=== PATIENT | female | born 1945 | race Caucasian/White ===

== ENCOUNTER 2019-08-04 10:12 | Day surgery (SDC) | payer MEDICARE, OTHER, SELFPAY ==
[2019-08-03 17:44] VITALS: BMI 37.4
[2019-08-04] VITALS (12 sets, daily range): BP systolic 131–191; BP diastolic 75–119; PULSE 75–100; RESP 16–28; TEMP 36.1–36.6; O2SAT 92–98
--- NOTE | 2019-08-04 11:08 | ANES.PREANES ---
Pre-Anesthetic Assessment Pre-Anesthetic Assessment: Height/Weight: Height 1.65 m Weight 102.058 kg Proposed Procedure: Operation Date: 08/04/19 11:25 Proposed Procedures p EGD W/ Biopsy(Not Applicable) - Yovani Vicente M.D s Bronchoscopy w/ Lavage(Not Applicable) - Yovani Vicente M.D Last intake: Intake Last Liquid Date 08/04/19 Last Liquid Time 02:00 Last Solid Date 08/03/19 Last Solid Time 05:00 Social: Social History: Tobacco and No alcohol Exam: Pre-Anes Outpt Exam: alert, oriented x 3, clear to auscultation bilaterally and regular rate & rhythm Airway: Submandibular: WNL Cervical ROM: WNL MP: 2 Dentition: False History/ROS: No significant history except as noted CV/HEM: CV/HEM: HTN Metabolic: Metabolic: DM, Morbid obesity and Thyroid Musc/skel: Musc/skel: Lower Back Pain and OA/DJD Anesthetic Plan: ASA status: II Anesthesia: Anesthesia Evaluation and General Risk of > 500 ml blood loss (7ml/kg in children): No PFSH Anesthesia PFSH: Medical History (Updated 08/04/19 @ 11:08 by Ger Huerta MD) Arthritis (Acute) Breast nodule (Acute) Diabetes (Acute) Hypertension (Acute) Hypothyroid (Acute) Post-laminectomy syndrome (Acute) Shortness of breath on exertion (Acute) Urinary bladder incontinence (Acute) Varicose veins with pain (Acute) Surgical History (Updated 08/04/19 @ 11:08 by Ger Huerta MD) H/O eye surgery (Acute) History of back surgery (Acute) History of carpal tunnel surgery (Acute) History of total left knee replacement (Acute) Hx of tubal ligation (Acute) Family History (Updated 08/03/19 @ 17:28 by Mallory Heath) Other Brain tumor Diabetes Heart disease Leukemia Social History (Updated 08/03/19 @ 17:43 by Mallory Heath) Smoking and tobacco status: former smoker Data Anesthesia Cardiac Studies: No Data to Display
[2019-08-04 11:26] LABS: Glucose Point of Care 183 mg/dL (70-110)
[2019-08-04] MEDS: sodium chloride 0.9% 1,000 ML 30 ML IV (11:26)
--- NOTE | 2019-08-04 11:28 | PM.HPUD ---
H&P update H&P Update: DATE OF SURGERY/PROCEDURE: 08/04/19 DATE H&P PERFORMED: 07/08/19 H&P UPDATE INFORMATION: H&P completed within last 30 days and No changes to prior documentation PLANNED PROCEDURE: Operation Date: 08/04/19 11:25 Proposed Procedures p EGD W/ Biopsy(Not Applicable) - Yovani Vicente M.D s Bronchoscopy w/ Lavage(Not Applicable) - Yovani Vicente M.D Full H&P Perinent History: Medical/Surgical History: Medical History (Updated 08/04/19 @ 11:08 by Ger Huerta MD) Arthritis (Acute) Breast nodule (Acute) Diabetes (Acute) Hypertension (Acute) Hypothyroid (Acute) Post-laminectomy syndrome (Acute) Shortness of breath on exertion (Acute) Urinary bladder incontinence (Acute) Varicose veins with pain (Acute) Family History: Family History (Updated 08/03/19 @ 17:28 by Mallory Heath) Other Brain tumor Diabetes Heart disease Leukemia Social History: Social History Smoking and tobacco status: former smoker
--- NOTE | 2019-08-04 12:16 | P.OP_ITS ---
Operative Report Post-Operative Note: Date of procedure: 08/04/19 Preop Diagnosis: Dysphasia, aspiration Post-op diagnosis: same Post-op Findings: Normal esophageal exam, normal bronchial examination, diffuse gastritis Procedure Done: EGD with biopsy gastric mucosa, flexible fiberoptic bronchoscopy with bronchoalveolar lavage right lower lobe for lipid-laden macrophage Specimens removed/disposition: Navigus, bronchoalveolar lavage Surgeon: Yovani Vicente Anesthesia: general Complications: None Findings: Diffuse gastritis Condition: stable Disposition: PACU Operative Report: Brief History: Mrs Vazquez is a pleasant female who has a 40- year history of dysphasia. She has been on numerous medications over the past and has not seen improvement. I discussed the goals risks and alternatives of treatment and informed consent was obtained to proceed with further surgical evaluation. Procedure: The patient was taken to the operating room under satisfactory general endotracheal anesthesia the bronchoscope was introduced into the trachea right and left bronchopulmonary segments 1 through 10 were examined no endobronchial lesions were identified. Thick mucoid secretions were noted in a few bronchopulmonary segments. Bronchoalveolar lavage was performed from the right lower lobe for lipid-laden macrophage. The esophagus scope was introduced into the post cricoid area. The esophagus stomach and duodenum were examined. The exam was significant for diffuse gastritis. A biopsy was taken of the gastric mucosa. A biopsy was taken of the distal esophagus. The patient was taken to the recovery room where she was observed. During the observation time postop care instructions and counseling including detailed written and verbal instructions were given to the patient and her son. Once both parties verbalized understanding of all instructions and once the patient met discharge criteria she was discharged in satisfactory and stable condition. Coding Level of Care Code Acute Econometrics Professor for Susu Carranza
[2019-08-04] MEDS: labetalol 5 mg/mL SDV 20mL IVP ×2 (12:47→12:57)
[2019-08-04] MEDS: morphine 4 mg/mL SDV 1 mL 2 MG IVP (12:48)
--- NOTE | 2019-08-04 13:48 | ANE.PACU ---
 Inpatient post-anesthesia follow up: Airway intact: Yes Vital signs: Temperature 97.7 F Pulse Rate [Bilate ral Radial] 75 Respiratory Rate 20 Blood Pressure [Le ft Arm] 147/75 Blood Pressure [Ri ght Arm] 159/101 Pulse Oximetry 95 Oxygen Delivery Me thod Room Air Oxygen Flow Rate 10 Fraction of Inspir ed Oxygen Hydration adequate: Yes Nausea and vomiting: No Mental status: Baseline
--- NOTE | 2019-08-04 13:48 | SUR.PHASEI ---
1309- TRANSFERRED PATIENT FROM PACU TO OPS VIA [facility]. RESP ARE EVEN AND NONLABORED. SAT 94% WITH ROOM AIR. SHE IS AWAKE AND ALERT. PRODUCTIVE COUGH INTERMITTENT. SHE REPORTS I'M DOING MUCH BETTER NOW TRANSITION OF CARE TO NINI CASTLE
--- NOTE | 2019-08-04 13:52 | SUR.PHASEI ---
1223- RECEIVED PATIENT IN PACU FROM OR VIA [facility]. RESP ARE LABORED WITH ACCESSORY USE, PERSISTENT COUGH WITH CLEAR PRODUCTIVE SPUTUM. PT IS AWAKE AND ALERT. NO S/S PAIN OR NAUSEA. SIMPLE MASK APPLIED AT 10LPM, SAT 97%. SUCTION YAUNKER PROVIDED
== END 2019-08-04 14:05 | disposition home or self-care (01) ==
PROVIDERS: Family Provider Internal Medicine; PCP Internal Medicine; Visit Provider Otolaryngology
PROC: 0DJ08ZZ Inspection of Upper Intestinal Tract, Via Natural or Artificial Opening Endoscopic (ICD-10-PCS; CPT 43235; principal; 2019-08-04 11:15)
PROC: 0BJ08ZZ Inspection of Tracheobronchial Tree, Via Natural or Artificial Opening Endoscopic (ICD-10-PCS; CPT 31622; 2019-08-04 11:15)
DX: R47.02 Dysphasia (principal); R09.89 Other specified symptoms and signs involving the circulatory and respiratory systems; R22.1 Localized swelling, mass and lump, neck; E11.9 Type 2 diabetes mellitus without complications; M19.90 Unspecified osteoarthritis, unspecified site; E03.9 Hypothyroidism, unspecified; M17.12 Unilateral primary osteoarthritis, left knee; I10 Essential (primary) hypertension; Z82.49 Family history of ischemic heart disease and other diseases of the circulatory system; Z83.3 Family history of diabetes mellitus; Z87.891 Personal history of nicotine dependence; Z79.84 Long term (current) use of oral hypoglycemic drugs; E66.01 Morbid (severe) obesity due to excess calories; Z68.37 Body mass index [BMI] 37.0-37.9, adult
CPT/HCPCS: 31624; 43239; 36416; 80500; 82962; 88305; J0330; J2001; J2270; J2405; J2704; J3010; J3490; J7030

== ENCOUNTER → 2019-08-25 10:18 | Outpatient (BNVA) | payer MEDICARE, OTHER, SELFPAY | PROVIDERS: Family Provider Internal Medicine; Visit Provider Otolaryngology | DX: R13.10 Dysphagia, unspecified (principal); R05 Cough; J34.2 Deviated nasal septum | CPT/HCPCS: 99213; 99214 ==

== ENCOUNTER → 2019-10-06 12:38 | Outpatient (BNVA) | payer MEDICARE, OTHER, SELFPAY | PROVIDERS: Family Provider Internal Medicine; Visit Provider Otolaryngology | DX: R13.10 Dysphagia, unspecified (principal); R05 Cough; J34.2 Deviated nasal septum | CPT/HCPCS: 99213; 99214 ==

== ENCOUNTER 2020-02-08 11:09 | Outpatient (CLI) | payer MEDICARE, OTHER, SELFPAY ==
[2020-02-09 17:25] LABS: Cat Dander (E1) Ige <0.10 kU/L; Cat Dander Class 0; Common Ragweed (Short) (W1) Ig <0.10 kU/L; Dog Dander (E5) Ige <0.10 kU/L; Dog Dander Class 0; Elm (T8) Ige <0.10 kU/L; Elm Class 0; English Plantain (W9) Ige <0.10 kU/L; English Plantain Class 0; Immunoglobulin E 40 kU/L (<OR=114); Immunoglobulin E 42 kU/L (<OR=114); Lamb'S Quarters (Goose Foot) <0.10 kU/L; Lamb'S Quarters Class 0; Maple (Box Elder) (T1) Ige <0.10 kU/L; Maple Class 0; Oak (T7) Ige <0.10 kU/L; Oak Class 0; Ragweeed Class 0; Rough Marsh Elder (W16) Ige <0.10 kU/L; Rough Marsh Elder Class 0
[2020-02-10 17:06] LABS: Alternaria Alternata (M6) Ige <0.10 kU/L; Alternaria Class 0; Bermuda Class 0; Bermuda Grass (G2) Ige <0.10 kU/L; D. Farinae Class 0; Dermatophagoides Class 0; Dermatophagoides Farinae (D2) <0.10 kU/L; Dermatophagoides Pteronyssinus <0.10 kU/L; House Dust (Greer) (H1) Ige <0.10 kU/L; House Dust (Hollister- Stier) <0.10 kU/L; House Dust Class 0; Johnson Grass (G10) Ige <0.10 kU/L; Johnson Grass Cl 0; June Grass Class 0; June Grass(Kentucky Blue) (G8) <0.10 kU/L; Meadow Fescue (G4) Ige <0.10 kU/L; Meadow Fescue Class 0; Mucor Racemosus Class 0; Orchard Grass (Cocksfoot) (G3) <0.10 kU/L; Penicillium Class 0; Penicillium Notatum (M1) Ige <0.10 kU/L; Perennial Rye Grass (G5) Ige <0.10 kU/L; Perennial Rye Grass Class 0; Sweet Vernal Class 0; Sweet Vernal Grass (G1) Ige <0.10 kU/L; Timothy Grass (G6) Ige <0.10 kU/L; Timothy Grass Class 0
[2020-02-11 18:41] LABS: Aspergillus Fumigatus, Igg Ab, 16.9 mg/L (<=102)
== END 2020-02-08 11:10 | disposition home or self-care (01) ==
LOC: LAB 11:16
PROVIDERS: PCP Internal Medicine; Visit Provider Internal Medicine Critical Care Medicine
DX: J45.909 Unspecified asthma, uncomplicated (principal); R06.02 Shortness of breath
CPT/HCPCS: 36415; 82785; 86003

== ENCOUNTER 2020-02-16 06:21 | Outpatient (CLI) | payer MEDICARE, OTHER, SELFPAY ==
--- NOTE | 2020-02-16 14:18 | PFTS_ITS ---
Date of Study:02/16/20 Date of Dictation: MECHANICS: Forced vital capacity (FVC) is normal. Forced expiratory volume in one second (FEV1) is normal. FEV1/FVC is normal. FLOW VOLUME LOOP: Normal. LUNG VOLUMES: Not measured DIFFUSING CAPACITY FOR CARBON MONOXIDE: Mildly reduced. INTERPRETATION: The pulmonary function tests are normal. Lung volumes are not measured due to claustrophobia. Gas exchange (DLCO) is mildly reduced. MTDD
== END 2020-02-16 06:22 | disposition home or self-care (01) ==
PROVIDERS: PCP Internal Medicine; Visit Provider Internal Medicine Critical Care Medicine
DX: J45.909 Unspecified asthma, uncomplicated (principal)
CPT/HCPCS: 94010; 94729

== ENCOUNTER → 2020-03-25 08:52 | Outpatient (BNVA) | payer MEDICARE, OTHER, SELFPAY | PROVIDERS: PCP Internal Medicine; Visit Provider Internal Medicine | DX: K52.9 Noninfective gastroenteritis and colitis, unspecified (principal) | CPT/HCPCS: 87635 ==

== ENCOUNTER 2020-03-29 08:00 | Day surgery (SDC) | payer MEDICARE, OTHER, SELFPAY ==
[2020-03-25 16:58] VITALS: BMI 36.6
[2020-03-29 08:34] VITALS: BP 116/70; PULSE 86; RESP 18; TEMP 36.5; O2SAT 96
[2020-03-29 08:51] LABS: Glucose Point of Care 184 mg/dL (70-110)
--- NOTE | 2020-03-29 08:51 | ECG_ITS ---
[facility] Test Date: 2020-03-29 Pat Name: Lilo Vazquez Department: Room: Gender: Female Manager Material: : 1945 Requested By: Alba Luna Order Number: [id number] Jeferson MD: Zenobia Peterson M.D. Measurements Intervals [place] Rate: 66 P: 35 NM: 163 QRS: 13 QRSD: 90 T: 50 QT: 409 QTc: 429 Interpretive Statements SINUS RHYTHM No previous ECG available for comparison Electronically Signed On 03-29-2020 20:51:58 CDT by Zenobia Peterson M.D. [id number]
[2020-03-29] MEDS: sodium chloride 0.9% 1,000 ML 30 ML IV (08:52)
--- NOTE | 2020-03-29 09:02 | ANES.PREANE2 ---
Pre-Anesthetic Assessment Pre-Anesthetic Assessment: Height/Weight: Height 1.65 m Weight 99.79 kg Temp Pulse Resp BP Pulse Ox 97.7 F 86 18 116/70 96 03/29/20 08:34 03/29/20 08:34 03/29/20 08:34 03/29/20 08:34 03/29/20 08:34 Preop Diagnosis: chronic diarrhea Proposed Procedure: Operation Date: 03/29/20 09:45 Proposed Procedures p Colonoscopy 28162 Z12.11(Not Applicable) - Jb Ferguson MD Familial anesthetic complications: None Was Beta Jaron taken within 24 hours: N/A Last intake: Intake Last Liquid Date 03/28/20 Last Liquid Time 21:00 Last Solid Date 03/28/20 Last Solid Time 08:00 Social: Social History: No alcohol and No tobacco Comment: former smoker Exam: Pre-Anes Outpt Exam: alert, oriented x 3, clear to auscultation bilaterally and regular rate & rhythm Airway: Cervical ROM: WNL MP: 2 Dentition: False Pulmonary: Pulmonary: Sleep apnea Comments: ? asthma has had persistent cough - evaulated by clinical account manager, Dr Leonardo and thought to be due to persistent postnasal drip exacerbated by r sided nasal deviation CV/HEM: CV/HEM: HTN Comments: Seen as follow up by Jacob on 03/14 - had equivocal stress test, decreased perfusion thought to be arifact, no further complains of chest pain which was thought to be atypical. Echo is 2016 shoed normal EF, but mod pulm HTN Metabolic: Metabolic: DM and Thyroid Anesthetic Plan: ASA status: 3 Anesthesia: MAC Risk of > 500 ml blood loss (7ml/kg in children): No Meds/Allergies Current Medications: Current Medications Generic Name Dose Route Start Last Admin Trade Name Freq PRN Reason Stop Dose Admin Sodium Chloride 1,000 mls @ 30 ml s/hr 03/29/20 08:30 03/29/20 08:52 Sodium Chloride 0.9% IV 30 mls/hr .Q24H STEPHANIE Administration PFSH Anesthesia PFSH: Medical History (Updated 03/14/20 @ 18:05 by Osei James MD) Arthritis Diabetes Hypertension Hypothyroid Post-laminectomy syndrome Urinary bladder incontinence Varicose veins with pain Surgical History H/O eye surgery History of back surgery History of carpal tunnel surgery History of incision and drainage Left groin History of total left knee replacement Hx of tubal ligation Family History Other Brain tumor CAD (coronary artery disease) Cancer Diabetes Heart disease Leukemia Denies family history of Anesthesia complication Bleeding disorder Social History Smoking and tobacco status: former smoker Quit status (tobacco): has quit using tobacco Year quit tobacco: 1970 - 0.5 PPD x 1 Year Alcohol intake: former Year of sobriety/quit date alcohol: 1982 Lives independently: Yes Household members: family Marital status: Current occupational status: retired History of recent travel: No Current gender identity: Female Data Anesthesia Other Labs: Laboratory Results - last 48 hr 03/29/20 08:48 POC Glucose 184 Cardiac Studies: No Data to Display
--- NOTE | 2020-03-29 09:48 | W.PM.OPSUD ---
Surgery/Procedure H&P Update DATE OF PROCEDURE: March 29, 2020 DATE H&P PERFORMED: 03/10/20 H&P UPDATE INFORMATION: I have reviewed H&P completed within last 30 days, I have examined patient prior to procedure and No changes to prior documentation PREOP DIAGNOSIS: chronic diarrhea PLANNED PROCEDURE: Operation Date: 03/29/20 09:45 Proposed Procedures p Colonoscopy 32791 Z12.11(Not Applicable) - Jb Ferguson MD
[2020-03-29 10:20] VITALS: BP 134/63; PULSE 72; RESP 16; TEMP 36.4; O2SAT 94
--- NOTE | 2020-03-29 10:32 | ANE.PACU2 ---
Inpatient post-anesthesia follow up: Airway intact: Yes Vital signs: Temperature 97.6 F Pulse Rate 72 Respiratory Rate 16 Blood Pressure 134/63 Pulse Oximetry 94 Oxygen Delivery Me thod Nasal Cannula Oxygen Flow Rate Fraction of Inspir ed Oxygen Hydration adequate: Yes Nausea and vomiting: No Mental status: Baseline
[2020-03-29 10:39] VITALS: BP 142/66; PULSE 77; RESP 18; O2SAT 95
== END 2020-03-29 10:55 | disposition home or self-care (01) ==
PROVIDERS: PCP Internal Medicine; Visit Provider Surgery
PROC: 0DJD8ZZ Inspection of Lower Intestinal Tract, Via Natural or Artificial Opening Endoscopic (ICD-10-PCS; CPT 45378; principal; 2020-03-29 09:45)
DX: D12.3 Benign neoplasm of transverse colon (principal); D12.4 Benign neoplasm of descending colon; R19.7 Diarrhea, unspecified; G47.30 Sleep apnea, unspecified; I10 Essential (primary) hypertension; I27.20 Pulmonary hypertension, unspecified; E11.9 Type 2 diabetes mellitus without complications; M19.90 Unspecified osteoarthritis, unspecified site; E03.9 Hypothyroidism, unspecified; M96.1 Postlaminectomy syndrome, not elsewhere classified; Z87.891 Personal history of nicotine dependence
CPT/HCPCS: 45380; 12345; 36416; 45385; 82274; 82962; 83630; 87046; 87328; 87329; 87493; 88305; 93005; J2704; J3490; J7030

== ENCOUNTER 2020-07-05 12:48 | Outpatient (CLI) | payer MEDICARE, OTHER, MEDICAID, SELFPAY ==
--- NOTE | 2020-07-05 13:02 | CT_ITS ---
WS: [id number] CT ABDOMEN PELVIS TECHNIQUE: Noncontrast CT of the abdomen and pelvis with coronal and sagittal reformatted images. CLINICAL INFORMATION: ABDOMINAL PAIN RIGHT LOWER QUADRANT COMPARISON: CT 6 24,015 DLP: 844.[address] scans at [facility] use at least one of these dose optimization techniques: automat ed exposure control; mA and/or kV adjustment per patient size (includes targeted exams where dose is matched to clinical indication); or iterative reconstruction. FINDINGS: Hepatomegaly with diffuse fatty infiltration. Cirrhotic contour to the liver. Enlargement of the caud ate. Liver is similar in appearance to 2015. Recommend correlation with liver function tests. Cholecy stectomy. Prominent lymph nodes in the upper abdomen along the celiac axis unchanged since 2015 likel y reactive. Small esophageal hiatal hernia. Lung bases are well aerated. Adrenal glands are normal. N ormal caliber abdominal aorta. Aortic calcification. Normal sigmoid colon. No evidence of small or large bowel obstruction. Fat-containing umbilical herni a. No herniated bowel. Adrenal glands are normal. No hydronephrosis in either kidney. No obstructing renal or ureteral calculi. No free fluid in the pelvis. CT/CT abdomen pelvis wo con [id number] IMPRESSION: 1. Hepatomegaly with nodular cirrhotic configuration to the liver with diffuse fatty infiltration. This is similar to 2015. Recommend correlation with liver function tests. 2. Prior cholecystectomy. 3. Prominent lymph nodes in the upper abdomen unchanged from previous likely r eactive. 4. Small esophageal hiatal hernia. 5. Fat-containing umbilical hernia. No herniated bowel. 6. No other significant findings.
[2020-07-05] MEDS: iohexol 300 mg/mL 50 mL Btl PO (14:04)
== END 2020-07-05 12:49 | disposition home or self-care (01) ==
PROVIDERS: PCP Internal Medicine; Visit Provider Internal Medicine
DX: R10.31 Right lower quadrant pain (principal); R16.0 Hepatomegaly, not elsewhere classified; K76.89 Other specified diseases of liver; Z90.49 Acquired absence of other specified parts of digestive tract; K42.9 Umbilical hernia without obstruction or gangrene; K44.9 Diaphragmatic hernia without obstruction or gangrene
CPT/HCPCS: 74176; Q9967

== ENCOUNTER 2020-08-03 10:34 | Outpatient (CLI) | payer MEDICARE, OTHER, MEDICAID, SELFPAY ==
--- NOTE | 2020-08-03 10:42 | MR_ITS ---
WS: [id number] MRI LUMBAR SPINE NONCONTRAST HISTORY: DEGENERATIVE DISC DISEASE LUMBOSACRAL W/RADICULOPATHY COMPARISON: None available. TECHNIQUE: Sagittal and axial multisequence imaging is submitted. Moderate increase in the thoracic kyphosis. T8 and T12 vertebral body hemangiomas. Normal posterior lumbar alignment. Disc space narrowing and desiccation is most significant and moderate at L4-5. There are sclerotic en dplate changes at L4-5 but no marrow edema or fracture. Conus terminates normally at L1. L1-L2: Normal. L2-L3: Normal. L3-L4: Mild annular disc bulging and osteophytic ridging. Moderate asymmetric ligamentum flavum hyper trophy, greatest on the LEFT. Mild facet joint arthritis. There is mild encroachment into the LEFT la teral thecal sac by the facet joint arthritis. No significant stenosis. L4-L5: Moderate annular disc bulging and osteophytic ridging. No focal disc protrusion. Prior debride ment of the ligamentum flavum. Focal laminectomy defect on the LEFT. There is mild clumping of the ne rve roots in the thecal sac. Mild encroachment into the LEFT subarticular recess but no high-grade st enosis. L5-S1: Facet joint arthritis and mild ligamentum flavum hypertrophy. No high-grade stenosis. Paravertebral soft tissues are negative for acute process. MR/MR lumbar spine wo con* [id number] IMPRESSION: 1. No significant central or foraminal stenosis or disc protrusion. 2. 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 3. Prior LEFT hemilaminectomy defect at L4-5. 4. Mild encroachment into the LEFT subarticular recess at L4-5 without signifi cant stenosis. 5. Asymmetric ligamentum flavum hypertrophy and facet arthritis at L3-4 with m inimal encroachment upon the LEFT lateral thecal sac.
--- NOTE | 2020-08-03 10:42 | MR_ITS ---
WS: [id number] MRI BRAIN WITHOUT CONTRAST HISTORY: MEMORY LOSS COMPARISON: Head CT 01/29/2012. TECHNIQUE: Diffusion imaging, multiplanar T1, T2 and FLAIR imaging obtained. No evidence for acute infarct or hemorrhage. Kaye-white matter differentiation is normal. No remote or acute infarcts are volume loss. Minimal chronic microvascular ischemic changes. Ventricles and extra-axial spaces are normal. No inferior displacement of cerebellar tonsils. The sella turcica and pituitary gland are unremarkabl e. Posterior fossa is also unremarkable. Dural venous sinuses and [place] demonstrate no abnormality on this unenhanced studies. Paranasal sinuses: Clear. Mastoid air cells: Normal. Calvarium and scalp: Intact. MR/MR head wo con* [id number] IMPRESSION: 1. No acute infarct or intracranial hemorrhage. 2. Mild chronic microvascular ischemic disease.
== END 2020-08-03 10:35 | disposition home or self-care (01) ==
PROVIDERS: PCP Internal Medicine; Visit Provider Internal Medicine
DX: R41.3 Other amnesia (principal); M51.17 Intervertebral disc disorders with radiculopathy, lumbosacral region; M47.816 Spondylosis without myelopathy or radiculopathy, lumbar region; G03.9 Meningitis, unspecified
CPT/HCPCS: 70551; 72148

== ENCOUNTER → 2020-08-11 14:59 | Outpatient (BNVA) | payer MEDICARE, OTHER, MEDICAID, SELFPAY | PROVIDERS: PCP Internal Medicine; Referring Provider Internal Medicine; Visit Provider Orthopaedic Surgery | DX: M54.9 Dorsalgia, unspecified (principal) | CPT/HCPCS: 72114 ==

== ENCOUNTER → 2020-08-25 08:28 | Outpatient (BNVA) | payer MEDICARE, OTHER, MEDICAID, SELFPAY | PROVIDERS: PCP Internal Medicine; Referring Provider Orthopaedic Surgery; Visit Provider Anesthesiology Pain Medicine | DX: G89.29 Other chronic pain (principal); M54.9 Dorsalgia, unspecified; M51.36 Other intervertebral disc degeneration, lumbar region; M47.816 Spondylosis without myelopathy or radiculopathy, lumbar region | CPT/HCPCS: 99205 ==

== ENCOUNTER 2020-08-30 10:54 | Outpatient (CLI) | payer MEDICARE, OTHER, MEDICAID, SELFPAY ==
--- NOTE | 2020-08-30 11:06 | MM_ITS ---
WS: [id number] SCREENING DIGITAL MAMMOGRAM WITH CAD HISTORY: SCREENING COMPARISON: 07/16/2019, 04/18/2018 and 01/25/2016 Bilateral CC and MLO views submitted. Computer aided detection analyzed. Breast composition: There are scattered areas of fibroglandular density. Linear calcifications have i ncreased in size and number since the prior study in the central LEFT breast at 12:00. These calcific ations may be ductal or vascular. Hopefully additional imaging will determine this. Otherwise the par enchymal pattern and calcifications are stable. MM/[place] [id number] IMPRESSION: BI-RADS: 0-Incomplete: Need additional imaging evaluation FOLLOW UP: Need Additional Imaging RIGHT BREAST: Magnification views of suspicious calcification CC and MLO. True ML.
== END 2020-08-30 10:55 | disposition home or self-care (01) ==
LOC: RADSHAW 11:01
PROVIDERS: PCP Internal Medicine; Visit Provider Internal Medicine
DX: Z12.31 Encounter for screening mammogram for malignant neoplasm of breast (principal); R92.1 Mammographic calcification found on diagnostic imaging of breast
CPT/HCPCS: 77067

== ENCOUNTER 2020-09-16 13:18 | Outpatient (CLI) | payer MEDICARE, OTHER, MEDICAID, SELFPAY ==
--- NOTE | 2020-09-16 13:34 | MM_ITS ---
WS: [id number] ADDITIONAL VIEWS RIGHT BREAST HISTORY: ABNORMAL MAMMOGRAM COMPARISON: 08/30/2020, 04/18/2018 Magnification views right CC and MLO projection. True ML also submitted. Linear area of increasing pleomorphic calcifications in the RIGHT breast near 11-12 o'clock. Calcific ations are in a posterior depth. Due to the linear distribution and increasing number of for several years biopsy is recommended. MM/[place] [id number] IMPRESSION: BI-RADS: 4-Suspicious Finding-Biopsy Should Be Considered FOLLOW-UP: Biopsy Recommended Stereotactic biopsy recommended of RIGHT breast calcifications. Notified Bhakti Alvarez MD at 09/16/2020 2:41 PM.
== END 2020-09-16 13:19 | disposition home or self-care (01) ==
LOC: RADSHAW 13:24
PROVIDERS: PCP Internal Medicine; Visit Provider Internal Medicine
DX: R92.8 Other abnormal and inconclusive findings on diagnostic imaging of breast (principal); R92.1 Mammographic calcification found on diagnostic imaging of breast
CPT/HCPCS: 77065

== ENCOUNTER → 2020-09-26 08:03 | Outpatient (BNVA) | payer MEDICARE, OTHER, MEDICAID, SELFPAY | PROVIDERS: PCP Internal Medicine; Visit Provider Specialist | DX: M48.062 Spinal stenosis, lumbar region with neurogenic claudication (principal); M51.36 Other intervertebral disc degeneration, lumbar region; E11.40 Type 2 diabetes mellitus with diabetic neuropathy, unspecified; Z87.891 Personal history of nicotine dependence | CPT/HCPCS: 95886; 95909; 99202 ==

== ENCOUNTER 2020-09-30 11:43 | Outpatient (CLI) | payer MEDICARE, OTHER, MEDICAID, SELFPAY ==
--- NOTE | 2020-09-30 11:45 | MM_ITS ---
WS: [id number] STEREOTACTIC RIGHT BREAST BIOPSY WITH VACUUM ASSISTANCE HISTORY: RIGHT ABNORMAL MAMMOGRAM COMPARISON: 09/16/2020 and 08/30/2020 Procedure, risks and complications were explained to the patient. Medications and prior radiographs a re reviewed. RIGHT breast calcifications are located. Calcifications are targeted in the craniocaudal projection. The skin is cleansed with ChloraPrep and anesthetized with 1% buffered lidocaine. Deeper soft tissues anesthetized with a combination of lidocaine and epinephrine. Small dermatome is made. Needle advanc ed into the RIGHT breast. Stereotactic imaging reveals appropriate positioning adjacent calcification s. Multiple vacuum-assisted core biopsies are obtained. No complications were encountered. Post biopsy specimen radiograph reveals numerous calcifications. Biopsy clip is placed in the cavity. Post imaging reveals good placement of the clip. No migration. Pressures held for approximately 15 minutes. No bleeding. Dressing applied. Patient discharged with n o complications. There is no bleeding. With any questions or complications patient is to return. MM/[place] [id number] IMPRESSION: 1. Uncomplicated RIGHT breast stereotactic biopsy. 2. Specimen contains numerous calcifications. Pathology: Benign breast tissue with fibroadenomatoid change and microcalcifica tions. No malignancy. RECOMMENDATION: Diagnostic RIGHT mammogram in 6 months.
--- NOTE | 2020-09-30 11:45 | MM_ITS ---
WS: [id number] STEREOTACTIC RIGHT BREAST BIOPSY WITH VACUUM ASSISTANCE HISTORY: RIGHT ABNORMAL MAMMOGRAM COMPARISON: 09/16/2020 and 08/30/2020 Procedure, risks and complications were explained to the patient. Medications and prior radiographs a re reviewed. RIGHT breast calcifications are located. Calcifications are targeted in the craniocaudal projection. The skin is cleansed with ChloraPrep and anesthetized with 1% buffered lidocaine. Deeper soft tissues anesthetized with a combination of lidocaine and epinephrine. Small dermatome is made. Needle advanc ed into the RIGHT breast. Stereotactic imaging reveals appropriate positioning adjacent calcification s. Multiple vacuum-assisted core biopsies are obtained. No complications were encountered. Post biopsy specimen radiograph reveals numerous calcifications. Biopsy clip is placed in the cavity. Post imaging reveals good placement of the clip. No migration. Pressures held for approximately 15 minutes. No bleeding. Dressing applied. Patient discharged with n o complications. There is no bleeding. With any questions or complications patient is to return. MM/MM surgical specimen RT IMPRESSION: 1. Uncomplicated RIGHT breast stereotactic biopsy. 2. Specimen contains numerous calcifications. Pathology: Benign breast tissue with fibroadenomatoid change and microcalcifica tions. No malignancy. RECOMMENDATION: Diagnostic RIGHT mammogram in 6 months.
--- NOTE | 2020-09-30 11:45 | MM_ITS ---
WS: [id number] STEREOTACTIC RIGHT BREAST BIOPSY WITH VACUUM ASSISTANCE HISTORY: RIGHT ABNORMAL MAMMOGRAM COMPARISON: 09/16/2020 and 08/30/2020 Procedure, risks and complications were explained to the patient. Medications and prior radiographs a re reviewed. RIGHT breast calcifications are located. Calcifications are targeted in the craniocaudal projection. The skin is cleansed with ChloraPrep and anesthetized with 1% buffered lidocaine. Deeper soft tissues anesthetized with a combination of lidocaine and epinephrine. Small dermatome is made. Needle advanc ed into the RIGHT breast. Stereotactic imaging reveals appropriate positioning adjacent calcification s. Multiple vacuum-assisted core biopsies are obtained. No complications were encountered. Post biopsy specimen radiograph reveals numerous calcifications. Biopsy clip is placed in the cavity. Post imaging reveals good placement of the clip. No migration. Pressures held for approximately 15 minutes. No bleeding. Dressing applied. Patient discharged with n o complications. There is no bleeding. With any questions or complications patient is to return. MM/[place] vac assist [id number] IMPRESSION: 1. Uncomplicated RIGHT breast stereotactic biopsy. 2. Specimen contains numerous calcifications. Pathology: Benign breast tissue with fibroadenomatoid change and microcalcifica tions. No malignancy. RECOMMENDATION: Diagnostic RIGHT mammogram in 6 months.
[2020-09-30 12:12] LABS: INR 1.09 (0.8-1.2)
== END 2020-09-30 11:44 | disposition home or self-care (01) ==
LOC: RADSHAW 11:43
PROVIDERS: PCP Internal Medicine; Visit Provider Internal Medicine
DX: R92.8 Other abnormal and inconclusive findings on diagnostic imaging of breast (principal); R92.1 Mammographic calcification found on diagnostic imaging of breast
CPT/HCPCS: 19081; 36415; 77065; 85610; 88305

== ENCOUNTER 2020-10-24 16:44 | Outpatient (CLI) | payer MEDICARE, OTHER, MEDICAID, SELFPAY ==
--- NOTE | 2020-10-24 16:58 | XRR_ITS ---
PROCEDURE INFORMATION: Exam: XR Chest Exam date and time: 10/24/2020 5:02 PM Age: 75 years old Clinical indication: Cough TECHNIQUE: Imaging protocol: XR of the chest Views: 2 views. COMPARISON: CR Chest 2 views* [id number] 07/10/2018 11:17 AM FINDINGS: Lungs: Lungs are clear. Pleural spaces: Unremarkable. No pleural effusion. No pneumothorax. Heart/Mediastinum: Heart is within normal limits of size. Bones/joints: There is mild degenerative change in thoracic spine. XR/XR chest 2V* [id number] IMPRESSION: No acute infiltrate.
== END 2020-10-24 16:45 | disposition home or self-care (01) ==
LOC: RAD 16:48
PROVIDERS: PCP Internal Medicine; Visit Provider Nurse Practitioner Family
DX: R05 Cough (principal)
CPT/HCPCS: 71046

== ENCOUNTER 2021-01-09 09:25 | Outpatient (RCR) | payer MEDICARE, OTHER, MEDICAID, SELFPAY | END 2021-01-25 23:59 | disposition home or self-care (01) | LOC: SPT 09:25 | PROVIDERS: PCP Internal Medicine; Referring Provider Internal Medicine; Visit Provider Internal Medicine | DX: M54.9 Dorsalgia, unspecified (principal); M51.17 Intervertebral disc disorders with radiculopathy, lumbosacral region | CPT/HCPCS: 97161 ==

== ENCOUNTER 2021-01-18 10:06 | Outpatient (CLI) | payer MEDICARE, OTHER, MEDICAID, SELFPAY ==
--- NOTE | 2021-01-18 10:16 | XR_ITS ---
WS: [id number] Cervical spine, 3 views, 01/18/2021 Clinical Data: DEGENRATIVE DISC DZ W/RADICULOPATHY Comparison: None. Findings: No compression fractures are seen. There is degenerative disc narrowing at C5-C6. There is anterior osteophyte formation and calcification of the anterior longitudinal ligament at C4-C5 and C5 -C6.. There is no prevertebral soft tissue swelling. The odontoid is unremarkable. There is minimal c alcification in the soft tissue of the left neck which may represent calcification in the carotid bif urcation. XR/XR cervical spine 3V* [id number] Impression: 1. Degenerative disc narrowing at C5-C6. 2. Osteoarthritis at C4-C5-C6.
== END 2021-01-18 10:07 | disposition home or self-care (01) ==
PROVIDERS: PCP Internal Medicine; Visit Provider Internal Medicine
DX: M50.10 Cervical disc disorder with radiculopathy, unspecified cervical region (principal); M47.812 Spondylosis without myelopathy or radiculopathy, cervical region
CPT/HCPCS: 72040

== ENCOUNTER 2021-02-07 08:38 | Outpatient (CLI) | payer MEDICARE, OTHER, MEDICAID, SELFPAY ==
--- NOTE | 2021-02-07 08:57 | ECG_ITS ---
[facility] Test Date: 2021-02-07 Pat Name: Lilo Vazquez Department: Room: Gender: Female General Adjuster: : 1945 Requested By: Bhakti Carrero Order Number: [id number] Jeferson MD: Zenobia Peterson M.D. Interpretive Statements NAME OF STUDY: LEXISCAN SESTAMIBI STRESS TEST INDICATION: Chest Pain PROCEDURE: At the baseline, the blood pressure was 155/75 mmHg with a heart rate of 68 bpm. The electrocardiogram showed normal sinus rhythm, normal axis. Poor baseline. The Lexiscan was infused over a period of 20 seconds. A total of 0.4 milligrams of Lexiscan was infused. The stress phase was continued for a total of 5 minutes. Heart rate at the end of the stress phase was 75 bpm with a blood pressure of 141/74 mmHg. The EKG at the peak infusion revealed sinus rhythm with no significant ST-T wave changes. Sestamibi was injected 20 seconds after the Lexiscan infusion. Blood pressure at the end of the recovery phase was 141/77 mmHg with a heart rate of 84 beats per minute. CONCLUSION: 1. No significant EKG changes with the LexiScan infusion. 2. No LexiScan induced chest pain or cardiac arrhythmia. 3. Normal blood pressure and heart rate response. 4. Sestamibi/sestamibi perfusion scan pending; see separate report. Electronically Signed On 02-08-2021 18:14:55 CDT by Zenobia Peterson M.D. [email or web address].[id number]
--- NOTE | 2021-02-07 08:58 | NMCV_ITS ---
NM dirk perf SPECT r/s* [id number] Lilo Vazquez Age: 75 Gender: F : 1945 Exam Date: 02/07/2021 08:58 Ordering Phys: Bhakti Alvarez MD Technologist: CHANDAN Palomino Exam Location: [facility] Indications: CHEST PAIN STRESS TEST Please [facility] IMAGE PROTOCOL Rest/Stress 1 Lexiscan Day Radiopharmaceutical Dose (mCi) Administration Site Administered by Rest: Tc-99m 10.7 IV CHANDAN Palomino Sestamibi Stress:Tc-99m 32.7 IV CHANDAN Crowe Sestamibi Rest: 07-Feb-2021 60 Discovery 630 Stress: 07-Feb-2021 30 Discovery 630 0.4mg Lexiscan. Supine position only as patient was unable to lay prone. SPECT RESULTS Technical Quality: Excellent Raw Data Analysis: Normal Image Corrections: No attenuation or motion correction applied Summed Stress Score: 0 Summed Rest Score: 1 Summed Difference Score: 0 PERFUSION FINDINGS Small size perfusion abnormality of mild severity of mid inferior wall on rest images with improved tracer uptake on stress images. This is suggestive of attenuation artifact. FUNCTIONAL RESULTS (calculated via Gated SPECT) Stress Image LV EF (%): 77 Stress EDV (mL):79 TID: 1.13 Stress ESV (mL):18 FUNCTIONAL FINDINGS: The left ventricle is normal in size. Transient Ischemia Dilatation of 1.1. There is normal left ventricular systolic function. The left ventricular ejection fraction is normal with a value of 77%. There is normal left ventricular wall thickening with no regional wall motion abnormality. Normal end-diastolic end-systolic volumes. IMPRESSIONS 1. Myocardial perfusion imaging is normal. Attenuation artifact in mid inferior wall. 2. Overall left ventricular systolic function is normal without regional wall motion abnormalities. 3. The left ventricular ejection fraction is normal with a value of 77%. 4. No coronary ischemia based on the study. 5. EKG portion of the study will be reported separately. Zenobia Peterson MD (Electronically Signed) Final Date: 08 February 2021 18:18 S
[2021-02-07 08:59] VITALS: BMI 35.2
[2021-02-07] MEDS: regadenoson 0.4 Mg/5 ml Syringe IVP (10:27)
[2021-02-07 10:48] VITALS: BP 140/81; PULSE 76
== END 2021-02-07 08:39 | disposition home or self-care (01) ==
LOC: CDL 08:44
PROVIDERS: PCP Internal Medicine; Visit Provider Internal Medicine
DX: R07.9 Chest pain, unspecified (principal)
CPT/HCPCS: 78452; 93017; A9500; J2785

== ENCOUNTER 2021-04-26 09:45 | Outpatient (CLI) | payer MEDICARE, OTHER, MEDICAID, SELFPAY ==
--- NOTE | 2021-04-26 09:54 | MR_ITS ---
WS: [id number] MRI NECK WITH CONTRAST TECHNIQUE: Noncontrast axial T1, axial T2 FSE fat sat, coronal T2 fat sat, coronal T1, coronal T1 fat sat, sagittal T2 fat sat, plus contrast enhanced coronal, sagittal, and axial T1 fat sat images obta ined. CLINICAL INFORMATION: MIXED CONDUCTIVE AND SENSORINEURAL HEARING LOSS COMPARISON: MRI August 03, 2020 FINDINGS: Normal posterior fossa. Normal vascular flow voids at the skull base. Partial opacification left grea ter than right mastoid air cells. Paranasal sinuses are well aerated. Normal posterior nasopharynx. P roximal 7th and 8th cranial nerves appear normal. No evidence of enhancing IAC or CP angle mass. Norm al trigeminal nerve root entry zones. No cervical lymphadenopathy. No abnormal gadolinium enhancement. Supraglottic airway appears patent. Subglottic airway appears patent. Normal mediastinal inlet and supraclavicular regions. Incidental he mangiomas C4 and C6 vertebral bodies. Mild disc bulging C4-C5 and C5-C6 with mild central canal steno sis. MR/MR orbit face neck wo/w* [id number] IMPRESSION: 1. Proximal 7th and 8th cranial nerves are normal in appearance. No evidence o f enhancing IAC or CP angle mass. 2. Paranasal sinuses are well aerated. Partial opacification of the left great er than right mastoid air cells. 3. Normal posterior fossa. 4. No cervical lymphadenopathy. 5. Incidental hemangiomas C4 and C6 vertebral bodies. 6. Supraclavicular regions are normal in appearance.
[2021-04-26] MEDS: gadobenate dimeglumine 20 mL vial IV (10:51)
== END 2021-04-26 09:46 | disposition home or self-care (01) ==
PROVIDERS: PCP Internal Medicine; Visit Provider Specialist
DX: H90.8 Mixed conductive and sensorineural hearing loss, unspecified (principal); D18.09 Hemangioma of other sites
CPT/HCPCS: 70543; A9577

== ENCOUNTER → 2021-08-09 09:53 | Outpatient (BNVA) | payer MEDICARE, OTHER, MEDICAID, SELFPAY | PROVIDERS: PCP Internal Medicine; Referring Provider Internal Medicine; Visit Provider Specialist | DX: M79.641 Pain in right hand (principal); M19.041 Primary osteoarthritis, right hand | CPT/HCPCS: 73130; 87635 ==

== ENCOUNTER 2021-08-11 06:36 | Day surgery (SDC) | payer MEDICARE, OTHER, MEDICAID, SELFPAY ==
[2021-08-10 12:52] VITALS: BMI 34.9
--- NOTE | 2021-08-11 07:10 | ANES.PREANE2 ---
Pre-Anesthetic Assessment Pre-Anesthetic Assessment: Height/Weight: Height 1.65 m Weight 95.254 kg Preop Diagnosis: Trigger finger right long finger Proposed Procedure: Operation Date: 08/11/21 08:10 Proposed Procedures p Right Long Finger Trigger Finger Release 16601 M65.30(Right) - Jacqueline Stewart MD Familial anesthetic complications: takes a while to wake up Was Beta Jaron taken within 24 hours: N/A Was Clonidine taken within 24 hours: N/A Last intake: > 8 hrs Social: Social History: No alcohol and No tobacco Comment: former smoker Exam: Pre-Anes Outpt Exam: alert, oriented x 3, clear to auscultation bilaterally and regular rate & rhythm Airway: MP: 2 Dentition: False Pulmonary: Pulmonary: Asthma CV/HEM: CV/HEM: Angina (Stable) (negative stress test last year) and HTN Comments: Date of Service: 02/07/21 Procedure(s): Sestamibi Stress Test Request CONCLUSION: 1. No significant EKG changes with the LexiScan infusion. 2. No LexiScan induced chest pain or cardiac arrhythmia. 3. Normal blood pressure and heart rate response. 4. Sestamibi/sestamibi perfusion scan pending; see separate report. Electronically Signed On 02-08-2021 18:14:55 CDT by Zenobia Peterson M.D. Date of Service: 02/07/21 Procedure(s): NM dirk perf SPECT r/s* [id number] IMPRESSIONS 1. Myocardial perfusion imaging is normal. Attenuation artifact in mid inferior wall. 2. Overall left ventricular systolic function is normal without regional wall motion abnormalities. 3. The left ventricular ejection fraction is normal with a value of 77%. 4. No coronary ischemia based on the study. 5. EKG portion of the study will be reported separately. Zenobia Peterson MD (Electronically Signed) 06/26/16 - Echocardiogram* [id number] CONCLUSIONS Left ventricular cavity not well visualized. Mild left ventricular hypertrophy. Normal left ventricular cavity size. Normal left ventricular systolic function. No regional wall motion abnormalities. Grade I/IV diastolic dysfunction (abnormal relaxation filling pattern), normal to mildly elevated filling pressures. Left ventricular ejection fraction is estimated at 65%. Normal right ventricular size and systolic function. Mild pulmonary hypertension, RVSP 42.5 mmHg. No significant change since the prior echocardiogram study of 07/20/15 Dr. Bill Tran MD (Electronically Signed) GI: GI: GERD Metabolic: Metabolic: DM and Thyroid Anesthetic Plan: ASA status: 3 Anesthesia: MAC and Regional (specify below) Risk of > 500 ml blood loss (7ml/kg in children): No PFSH Anesthesia PFSH: Medical History Arthritis Chest pain Diabetes Hypertension Hypothyroid Post-laminectomy syndrome Urinary bladder incontinence Varicose veins with pain Surgical History H/O eye surgery History of back surgery History of carpal tunnel surgery History of incision and drainage Left groin History of total left knee replacement Hx of tubal ligation Status post colonoscopy with polypectomy (03/29/20) Family History Other Brain tumor CAD (coronary artery disease) Cancer Diabetes Heart disease Leukemia Denies family history of Anesthesia complication Bleeding disorder Social History Quit status (tobacco): has quit using tobacco Year quit tobacco: 1970 - 0.5 PPD x 1 Year Alcohol intake: former Year of sobriety/quit date alcohol: 1982 Lives independently: Yes Household members: family Marital status: Current occupational status: retired History of recent travel: No Current gender identity: Female Data Anesthesia Cardiac Studies: Sestamibi Stress Test (Cardiology) 02/07/21
--- NOTE | 2021-08-11 07:15 | P.HPUD_ITS ---
Surgery/Procedure H&P Update DATE OF PROCEDURE: August 11, 2021 DATE H&P PERFORMED: 08/09/21 H&P UPDATE INFORMATION: I have reviewed H&P completed within last 30 days, I have examined patient prior to procedure, No changes to prior documentation and H&P is in [facility] EMR on date indicated PREOP DIAGNOSIS: Trigger finger right long finger PRIMARY INDICATION FOR PROCEDURE: Right Long finger triggering PLANNED PROCEDURE: Operation Date: 08/11/21 08:10 Proposed Procedures p Right Long Finger Trigger Finger Release [id number] M65.30(Right) - Jacqueline Stewart MD Related Problem List Diagnoses (1) Trigger finger, right middle finger:
[2021-08-11] MEDS: sodium chloride 0.9% 1,000 ML 30 ML IV (07:20)
[2021-08-11] MEDS: insulin regular-human 100 units/1 mL 10 UNIT IVP (07:20)
[2021-08-11] MEDS: acetaminophen 1,000 MG/100 ML PIGGYBACK 400 MG IV (07:21)
[2021-08-11 07:22] LABS: Glucose Point of Care 343 mg/dL (70-110)
[2021-08-11 07:25] VITALS: BP 121/75; PULSE 88; RESP 16; TEMP 36.4; O2SAT 95
[2021-08-11] MEDS: clindamycin 600 MG/50 ML PREMIX 100 MG IV (07:30)
[2021-08-11 08:40] VITALS: BP 151/69; PULSE 82; RESP 19; TEMP 36.2; O2SAT 96
[2021-08-11 08:45] VITALS: BP 165/86; PULSE 72; RESP 18; O2SAT 96
[2021-08-11 08:47] LABS: Glucose Point of Care 261 mg/dL (70-110)
[2021-08-11 08:50] VITALS: BP 146/87; PULSE 77; RESP 18; O2SAT 95
[2021-08-11 08:51] VITALS: BP 157/77; PULSE 75; RESP 15; TEMP 36.6; O2SAT 96
--- NOTE | 2021-08-11 08:56 | PM.OP ---
Operative Report Date of procedure: August 11, 2021 Pre-op Diagnosis: Trigger finger right long finger Post-op diagnosis: same Post-op Findings: Fraying of the flexor digitorum sublimis tendon Procedure Done: Right long finger trigger release Specimens removed/disposition: None Pathology: none sent Surgeon: Jacqueline Stewart It Applications Analyst: None Anesthesia: MAC (With [place] block, ASA 3) Estimated blood loss (mL): 10 Tourniquet time (min): 44 Tourniquet time: At 250 mmHg IV fluids (mL): 500 Urine output (mL): 0 Urine output: No Ryan Complications: None Findings: There was fraying of the flexor digitorum sublimis tendons slightly proximal to the A1 stella. Inflammation of the tenosynovium and A1 stella. Condition: stable Disposition: PACU (Then to same-day surgery for discharge home with family) Brief History: This 76-year-old woman presented with complaints of long finger triggering. She had radiation of pain up her arm and was quite tender to palpation in her hand. After discussion, she wished to proceed with operative intervention in the form of a trigger finger release of the right long finger. Risks and complications were discussed and consents were signed. Procedure: Patient was brought to the operating theater. She was placed on the operating room table. A [place] block was administered without difficulty. Patient tolerated it well. Clindamycin 600 mg IV was administered preoperatively. A tourniquet was placed high on the arm and was elevated for the [place] block. This followed exsanguination of the arm. Tourniquet time was 44 minutes. Patient's blood pressure elevated through the case, and the Wilner block was marginal and was supplemented with significant MAC anesthesia. The surgical pause was performed prior to commencement of the surgical procedure. At the time of the surgical pause we identified the site and side of surgery. We also identified the patient's identity and appropriate administration of IV antibiotics. Following the surgical pause, an incision was made along the distal palmar crease beneath the long finger. Dissection continued through the skin to the subcutaneous tissues using a scalpel. Blunt dissection was then utilized to spread soft tissues and allow access to the A1 stella. It was then incised longitudinally and sharply using a knife. This was accomplished without difficulty and atraumatically. Once the A1 stella was released, tendon were brought up out of the wound and evaluated. There were no gross masses on the tendons, but there was evidence of significant fraying of the flexor digitorum tendon. The surface which had been abraded, but the tendon did appear intact, and the fraying was not enough to change postoperative plans. Tendons were returned to normal position. We then irrigated the wound Vivacaine plain, and we subsequently closed it with 3-0 nylon with an interrupted mattress type suture. Following closure of the wound, the wound was injected with 3 mL of bupivacaine into the subcutaneous tissues as a local anesthetic. Sterile dressing was then placed consisting of OpSite, fluffed fluffs, sterile soft roll, and an Sergei wrap. The patient was returned to recovery in satisfactory condition. She will be discharged home to follow-up with me in the office. There were no complications and no specimens. Associated Problem List Diagnoses (1) Trigger finger, right middle finger:
[2021-08-11 09:06] VITALS: BP 145/73; PULSE 68; RESP 16; TEMP 36.6; O2SAT 97
--- NOTE | 2021-08-11 13:14 | ANE.PACU2 ---
Inpatient post-anesthesia follow up: Airway intact: Yes Vital signs: Temperature 97.8 F Pulse Rate 68 Respiratory Rate 16 Blood Pressure 145/73 Pulse Oximetry 97 Oxygen Delivery Me thod Room Air Oxygen Flow Rate Fraction of Inspir ed Oxygen Hydration adequate: Yes Nausea and vomiting: No Pain level: 2 Mental status: Baseline
== END 2021-08-11 09:25 | disposition home or self-care (01) ==
PROVIDERS: PCP Internal Medicine; Visit Provider Specialist
PROC: (CPT 26055; principal; 2021-08-11 08:00)
DX: M65.331 Trigger finger, right middle finger (principal); J45.909 Unspecified asthma, uncomplicated; M19.90 Unspecified osteoarthritis, unspecified site; E11.9 Type 2 diabetes mellitus without complications; I10 Essential (primary) hypertension; E03.9 Hypothyroidism, unspecified; Z82.49 Family history of ischemic heart disease and other diseases of the circulatory system; Z83.3 Family history of diabetes mellitus; Z87.891 Personal history of nicotine dependence
CPT/HCPCS: 26055; 36416; 82962; 96365; 96374; J1815; J2704; J3010; J3490; J7030

== ENCOUNTER 2021-08-29 12:48 | Outpatient (RCR) | payer MEDICARE, OTHER, MEDICAID, SELFPAY | END 2021-09-25 23:59 | disposition home or self-care (01) | LOC: SOT 12:48 | PROVIDERS: PCP Internal Medicine; Referring Provider Specialist; Visit Provider Specialist | DX: Z47.89 Encounter for other orthopedic aftercare (principal) | CPT/HCPCS: 97022; 97035; 97110; 97140; 97165; L3906 ==

== ENCOUNTER → 2021-09-18 07:56 | Outpatient (BNVA) | payer MEDICARE, OTHER, MEDICAID, SELFPAY | PROVIDERS: PCP Internal Medicine; Visit Provider Specialist | DX: M25.562 Pain in left knee (principal); Z96.652 Presence of left artificial knee joint | CPT/HCPCS: 73560; 73565 ==

== ENCOUNTER 2021-09-26 06:00 | Outpatient (RCR) | payer MEDICARE, OTHER, MEDICAID, SELFPAY | END 2021-10-17 11:34 | disposition home or self-care (01) | LOC: SPT 06:00 | PROVIDERS: PCP Internal Medicine; Referring Provider Specialist; Visit Provider Specialist | DX: Z47.1 Aftercare following joint replacement surgery (principal); Z96.652 Presence of left artificial knee joint | CPT/HCPCS: 97110; 97161 ==

== ENCOUNTER 2021-09-26 06:00 | Outpatient (RCR) | payer MEDICARE, OTHER, MEDICAID, SELFPAY | END 2021-10-26 23:59 | disposition home or self-care (01) | LOC: SOT 06:00 | PROVIDERS: PCP Internal Medicine; Referring Provider Specialist; Visit Provider Specialist | DX: Z47.89 Encounter for other orthopedic aftercare (principal) | CPT/HCPCS: 97022; 97035; 97110; 97140 ==

== ENCOUNTER 2021-10-25 10:01 | Outpatient (CLI) | payer MEDICARE, OTHER, MEDICAID, SELFPAY ==
--- NOTE | 2021-10-25 11:00 | MR_ITS ---
WS: [id number] MRI RIGHT HAND WITHOUT GADOLINIUM ENHANCEMENT. INDICATION: Pain and swelling since surgery TECHNIQUE: Coronal T1, coronal STIR, coronal 3-D FSPGR, axial T1, axial T2, and sagittal T2 imaging. FINDINGS: Marker in the area of concern overlying the volar aspect 3rd metacarpal head. Tenosynovitis along the flexor tendon sheath. There diffuse thickening of the lateral bands and thickening of the A1 and A2 pulleys at the head of the 3rd metacarpal and proximal phalanx. This is asymmetric compare d to the adjacent fingers. Thickening measures up to 15 mm with associated fluid along the tendon she ath compatible with tenosynovitis extending from the mid 3rd metacarpal into the proximal phalanx. Mild thickening of the underlying flexor digitorum profundus and flexor digitorum superficialis irene tible with tendinopathy. No acute appearing tears. Tendons appear intact. Bone marrow signal appears normal. Normal carpal tunnel. No visualized fractures or avulsion fractures. Mild degenerative arthritis radiocarpal joint. Degenerative arthritis 1st CMC and STT. MR/MR hand RT wo con* [id number] IMPRESSION: 1. Tenosynovitis along the 3rd metacarpal and 3rd digit flexor tendon sheath w ith surrounding edema and thickening of the A1 and A2 pulleys. Findings can be seen with a stenosing tenosynovitis. 2. Underlying FDP and FDS tendons are slightly enlarged but otherwise normal c ompatible with tendinopathy. 3. No avulsion fractures. 4. No other significant findings.
== END 2021-10-25 10:02 | disposition home or self-care (01) ==
LOC: RAD 10:04
PROVIDERS: PCP Internal Medicine; Visit Provider Specialist
DX: M65.331 Trigger finger, right middle finger (principal); G89.18 Other acute postprocedural pain; M65.841 Other synovitis and tenosynovitis, right hand
CPT/HCPCS: 73218; 73220

== ENCOUNTER → 2021-11-15 10:53 | Outpatient (BNVA) | payer MEDICARE, OTHER, MEDICAID, SELFPAY | PROVIDERS: PCP Internal Medicine; Visit Provider Specialist | DX: M79.641 Pain in right hand (principal); Z87.891 Personal history of nicotine dependence; Z98.890 Other specified postprocedural states | CPT/HCPCS: 99213; 99214 ==

== ENCOUNTER 2021-11-30 13:45 | Outpatient (CLI) | payer MEDICARE, OTHER, MEDICAID, SELFPAY ==
--- NOTE | 2021-11-30 13:52 | USCV_ITS ---
Lilo Vazquez Age: 76 Gender: F : 1945 Exam Date: 11/30/2021 13:59 Ordering Phys: Bhakti Alvarez MD Technologist: lOlie Toussaint [place]am [place] [facility] [place] Indication: dizzy Risk Factors: Previous Vascular Surgery: Right Brachial BP: / Left Brachial BP: / Right Left Velocity (cm/s) Spectral Plaque Velocity (cm/s) Spectral Plaque Syst/Diast Broadening Syst/Diast Broadening 65.10/ 8.80 Prox CCA 45.90 / 10.70 66.20/ 7.70 Mid CCA 49.10 / 9.10 56.20/ 11.00 Distal CCA 51.80 / 9.60 37.40/ 7.50 Prox ICA 41.70 / 9.60 53.40/ 14.40 Mid ICA 63.00 / 15.50 62.00/ 17.10 Distal ICA 58.20 / 19.80 104.70 ECA 65.70 0.94 ICA/CCA 1.22 Antegrade Vertebral Antegrade 28.00/ cm/s 34.00/ 5.00 cm/s Tri Subclavian Tri 42.20 57.70 CONCLUSIONS Right ICA stenosis <50%. Left ICA stenosis <50%. Normal antegrade Doppler flow noted in the right vertebral artery. Normal antegrade Doppler flow noted in the left vertebral artery. Brian Patel MD (Electronically Signed) Final Date: 30 Nov 2021 16:54 S
== END 2021-11-30 13:46 | disposition home or self-care (01) ==
LOC: RAD 13:46
PROVIDERS: PCP Internal Medicine; Visit Provider Internal Medicine
DX: G45.3 Amaurosis fugax (principal)
CPT/HCPCS: 93880

== ENCOUNTER → 2021-12-20 10:03 | Outpatient (BNVA) | payer MEDICARE, OTHER, MEDICAID, SELFPAY | PROVIDERS: PCP Internal Medicine; Visit Provider Specialist | DX: M65.331 Trigger finger, right middle finger (principal) | CPT/HCPCS: 99213; 99214 ==

== ENCOUNTER → 2022-01-01 12:28 | Outpatient (BNVA) | payer MEDICARE, OTHER, MEDICAID, SELFPAY | PROVIDERS: PCP Internal Medicine; Visit Provider Internal Medicine Cardiovascular Disease | DX: I10 Essential (primary) hypertension (principal); M65.331 Trigger finger, right middle finger; G47.30 Sleep apnea, unspecified | CPT/HCPCS: 99213 ==

== ENCOUNTER → 2022-01-17 10:10 | Outpatient (BNVA) | payer MEDICARE, OTHER, MEDICAID, SELFPAY | PROVIDERS: PCP Internal Medicine; Visit Provider Specialist | DX: M65.331 Trigger finger, right middle finger (principal); R29.898 Other symptoms and signs involving the musculoskeletal system; M79.641 Pain in right hand | CPT/HCPCS: 99213 ==

== ENCOUNTER 2022-02-06 14:45 | Outpatient (CLI) | payer MEDICARE, OTHER, MEDICAID, SELFPAY ==
--- NOTE | 2022-02-06 15:05 | XR_ITS ---
WS: [id number] CHEST 2 VIEWS HISTORY: COUGH COMPARISON: 10/24/2020 Lungs: Mildly hyperinflated lungs with flattened diaphragms. No mass or pneumonia. Cardiac size: Normal. Mediastinum/Aorta: Mild atherosclerosis aorta. Bones: Mild thoracic spondylosis. Prior cholecystectomy. XR/XR chest 2V* [id number] IMPRESSION: Mild emphysema with atherosclerosis aorta.
== END 2022-02-06 14:46 | disposition home or self-care (01) ==
LOC: RAD 14:47
PROVIDERS: PCP Internal Medicine; Visit Provider Internal Medicine
DX: J43.9 Emphysema, unspecified (principal); I70.0 Atherosclerosis of aorta
CPT/HCPCS: 71046

== ENCOUNTER 2022-02-22 14:40 | Outpatient (CLI) | payer MEDICARE, OTHER, MEDICAID, SELFPAY ==
--- NOTE | 2022-02-22 14:54 | MM_ITS ---
WS: [id number] BILATERAL 3D TOMOSYNTHESIS DIGITAL SCREENING MAMMOGRAPHY WITH CAD CLINICAL INFORMATION: SCREENING HISTORY: Screening mammogram. RIGHT breast soreness COMPARISON: August 30, 2020 TECHNIQUE: Bilateral CC and MLO views. FINDINGS: Scattered fibroglandular densities bilaterally. Bilateral biopsy markers. Stable RIGHT breast calcifi cations with biopsy marker. Vascular calcification. Stable clustered calcifications LEFT breast. No s uspicious focal mass, asymmetry, calcifications, or architectural distortion. No evidence of malignan cy. MM/[place] [id number] IMPRESSION: BI-RADS: 2-Benign FOLLOW UP: 1 Year Follow-up Recommend return to annual screening mammography.
== END 2022-02-22 14:41 | disposition home or self-care (01) ==
LOC: RAD 14:40
PROVIDERS: PCP Internal Medicine; Visit Provider Internal Medicine
DX: Z12.31 Encounter for screening mammogram for malignant neoplasm of breast (principal)
CPT/HCPCS: 77063; 77067

== ENCOUNTER → 2022-03-12 07:47 | Outpatient (BNVA) | payer MEDICARE, OTHER, MEDICAID, SELFPAY | PROVIDERS: PCP Internal Medicine; Referring Provider Specialist; Visit Provider Specialist | DX: G56.13 Other lesions of median nerve, bilateral upper limbs (principal) | CPT/HCPCS: 95910; 95912 ==

== ENCOUNTER → 2022-04-05 12:59 | Outpatient (BNVA) | payer MEDICARE, OTHER, MEDICAID, SELFPAY | PROVIDERS: PCP Internal Medicine; Referring Provider Specialist; Visit Provider Specialist | DX: G56.11 Other lesions of median nerve, right upper limb (principal); Z79.4 Long term (current) use of insulin; E11.40 Type 2 diabetes mellitus with diabetic neuropathy, unspecified | CPT/HCPCS: 95860; 99214 ==

== ENCOUNTER → 2022-04-23 08:12 | Outpatient (BNVA) | payer MEDICARE, OTHER, MEDICAID, SELFPAY | PROVIDERS: PCP Internal Medicine; Visit Provider Specialist | DX: M72.0 Palmar fascial fibromatosis [Dupuytren] (principal) | CPT/HCPCS: 99213 ==

== ENCOUNTER 2022-05-02 12:27 | Outpatient (CLI) | payer MEDICARE, OTHER, MEDICAID, SELFPAY ==
--- NOTE | 2022-05-02 12:42 | CT_ITS ---
WS: [id number] CT CHEST TECHNIQUE: Contrast enhanced CT of the chest with coronal and sagittal reformatted images. CLINICAL INFORMATION: COUGH COMPARISON: None. DLP: 684.[address] scans at [facility] use at least one of these dose optimization techniques: automated e xposure control; mA and/or kV adjustment per patient size (includes targeted exams where dose is matc hed to clinical indication); or iterative reconstruction. FINDINGS: Both lungs are well aerated. No acute pulmonary infiltrates. No focal pneumonia or pleural fluid. Nor mal caliber thoracic aorta. Normal descending thoracic aorta. No mediastinal or hilar lymphadenopathy . No axillary lymphadenopathy. Diffuse fatty infiltration liver. Slightly cirrhotic configuration to the liver. Normal portal vein a nd splenic vein. Prior cholecystectomy. Spleen size upper limits of normal. Prominent lymph nodes in the upper abdomen along the vickie hepatis and celiac axis similar to 2020. These are nonspecific but may be reactive. Additional prominent retrocrural lymph node similar to previous. Low-attenuation lesion tip of the spleen likely incidental cyst or hemangioma measuring 8 mm. Adrenal glands are normal. Upper abdominal aorta is normal. Normal celiac and SMA. Small esophageal hiatal h ernia. CT/CT chest w con* [id number] IMPRESSION: 1. Both lungs are well aerated. No acute pulmonary infiltrates. No suspicious pulmonary parenchymal abnormalities. 2. No mediastinal or hilar lymphadenopathy. 3. Normal caliber thoracic aorta. 4. Prominent lymph nodes in the upper abdomen along the celiac axis, vickie hep atis, and retrocrural nonspecific but may be reactive similar to 2020. These ar e also similar in appearance dating back to 2014. 5. Cirrhotic configuration to the liver with fatty infiltration. Spleen upper limits of normal. Recommend correlation with liver function tests. 6. Small esophageal hiatal hernia.
[2022-05-02 13:13] LABS: Blood Urea Nitrogen 18 mg/dL (8-23)
[2022-05-02] MEDS: iohexol 350 mg/mL 100 mL Btl IV (13:22)
== END 2022-05-02 12:28 | disposition home or self-care (01) ==
LOC: RAD 12:27
PROVIDERS: PCP Internal Medicine; Visit Provider Internal Medicine
DX: R05.9 Cough, unspecified (principal); R59.0 Localized enlarged lymph nodes; K44.9 Diaphragmatic hernia without obstruction or gangrene; K76.0 Fatty (change of) liver, not elsewhere classified
CPT/HCPCS: 71260; 82565; 84520

== ENCOUNTER 2022-07-02 13:11 | Outpatient (CLI) | payer MEDICARE, OTHER, MEDICAID, SELFPAY ==
--- NOTE | 2022-07-02 13:20 | MR_ITS ---
WS: [id number] MRI LUMBAR SPINE NONCONTRAST TECHNIQUE: Sagittal T1, T2 and STIR imaging. Axial T1 and T2 imaging. CLINICAL INFORMATION: DEGENERATIVE DISC DZ,LUMBOSACRAL SPINE W/RADICULOPATHY COMPARISON: MRI 08/03/20 FINDINGS: Mild lumbar curve. No acute compression. No high-grade central canal stenosis. Degenerative disc dise ase worse L4-L5 with disc space narrowing and fatty marrow endplate changes. L1-L2: Mild facet arthropathy. Spinal canal and foramen are patent. L2-L3: No significant disc bulging. Tiny RIGHT foraminal protrusion with mild RIGHT foraminal narrowi ng. Spinal canal and foramen are patent. Mild facet arthropathy. L3-L4: Mild annular bulging with slight effacement of ventral thecal sac. Mild facet arthropathy. RIG HT eccentric disc bulging with small RIGHT foraminal protrusion and mild RIGHT foraminal narrowing. S roldan canal and foramen are patent. L4-L5: Disc desiccation with slight effacement of ventral thecal sac. Prior hemilaminectomies. Mild f acet arthropathy. Mild LEFT and no significant RIGHT foraminal narrowing. L5-S1: Mild disc osteophytic ridging. Moderate facet arthropathy. Spinal canal and foramen are patent . Visualized pelvic bony structures: Normal. Paravertebral soft tissues: Normal. MR/MR lumbar spine wo con* [id number] IMPRESSION: 1. Prior laminectomies L4-L5. 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 2. Tiny RIGHT foraminal protrusion L2-L3 with mild RIGHT foraminal narrowing m ore prominent today. 3. RIGHT eccentric disc bulging L3-L4 with a small RIGHT foraminal protrusion slightly encroaches on the far exiting RIGHT L3 nerve root. This appears slight ly more prominent compared to previous. Mild narrowing of the subarticular rece ss at this level due to facet arthropathy and ligamentum flavum hypertrophy. 4. Mild LEFT L4-L5 bony foraminal narrowing appears stable. 5. Moderate facet arthropathy L5-S1
== END 2022-07-02 13:12 | disposition home or self-care (01) ==
LOC: RAD 13:11
PROVIDERS: PCP Internal Medicine; Visit Provider Internal Medicine
DX: M51.36 Other intervertebral disc degeneration, lumbar region (principal); M54.16 Radiculopathy, lumbar region; M96.1 Postlaminectomy syndrome, not elsewhere classified; G03.9 Meningitis, unspecified; M51.26 Other intervertebral disc displacement, lumbar region; M47.817 Spondylosis without myelopathy or radiculopathy, lumbosacral region
CPT/HCPCS: 72148

== ENCOUNTER → 2022-07-03 13:45 | Outpatient (BNVA) | payer MEDICARE, OTHER, MEDICAID, SELFPAY | PROVIDERS: PCP Internal Medicine; Visit Provider Internal Medicine Cardiovascular Disease | DX: I10 Essential (primary) hypertension (principal); G47.30 Sleep apnea, unspecified; K21.9 Gastro-esophageal reflux disease without esophagitis; E11.9 Type 2 diabetes mellitus without complications; Z79.4 Long term (current) use of insulin; G89.29 Other chronic pain; M54.9 Dorsalgia, unspecified | CPT/HCPCS: 99214 ==

== ENCOUNTER → 2022-07-05 15:03 | Outpatient (BNVA) | payer MEDICARE, OTHER, MEDICAID, SELFPAY | PROVIDERS: PCP Internal Medicine; Referring Provider Internal Medicine; Visit Provider Physician Assistant | DX: M47.816 Spondylosis without myelopathy or radiculopathy, lumbar region (principal); M48.062 Spinal stenosis, lumbar region with neurogenic claudication; M51.36 Other intervertebral disc degeneration, lumbar region; M46.1 Sacroiliitis, not elsewhere classified; G89.29 Other chronic pain | CPT/HCPCS: 72110; 99203 ==

== ENCOUNTER → 2022-08-09 08:54 | Outpatient (BNVA) | payer MEDICARE, OTHER, MEDICAID, SELFPAY | PROVIDERS: PCP Internal Medicine; Visit Provider Anesthesiology Pain Medicine | DX: G89.29 Other chronic pain (principal); M51.36 Other intervertebral disc degeneration, lumbar region; M47.816 Spondylosis without myelopathy or radiculopathy, lumbar region | CPT/HCPCS: 99214 ==

== ENCOUNTER 2022-09-12 11:14 | Outpatient (CLI) | payer MEDICARE, OTHER, MEDICAID, SELFPAY ==
--- NOTE | 2022-09-12 11:26 | FL_ITS ---
WS: [id number] Modified barium swallow, 09/12/2022 Clinical Data: Other dysphagia Comparison: None. Fluoroscopy time: 2min [id number] # of spot films: 0 Findings: The patient showed delay in oral propulsion with difficulty in mastication especially solid foods. Th ere is premature spillage with pooling in the vallecula which cleared on double swallows. There was n o penetration or aspiration. The barium tablet was propelled with difficulty and was delayed by stick ing in the vallecula. The barium tablet was propelled by liquids into the esophagus and promptly into the stomach. FL/FL barium swallow modifd [id number] Impression: 1. Delay in oral propulsion especially with solid material. 2. Premature spillage with pooling which cleared on double swallows. 3. No aspiration or penetration.
== END 2022-09-12 11:15 | disposition home or self-care (01) ==
LOC: RAD 11:14
PROVIDERS: PCP Internal Medicine; Visit Provider Internal Medicine
DX: E03.9 Hypothyroidism, unspecified (principal); R09.89 Other specified symptoms and signs involving the circulatory and respiratory systems
CPT/HCPCS: 74230; 92611

== ENCOUNTER 2022-09-21 13:20 | Outpatient (CLI) | payer MEDICARE, OTHER, MEDICAID, SELFPAY ==
--- NOTE | 2022-09-21 13:35 | US_ITS ---
WS: [id number] THYROID ULTRASOUND HISTORY: HYPOTHYROIDISM COMPARISON: 07/13/2019 Right lobe: 1.0 cm x 1.3 cm x 2.4 cm (w x ap x l). Volume: 1.6 cm3. Atrophied, echogenic thyroid tissue. Very similar to the prior study. No nodule or mass. No adenopat hy. Left lobe: 0.9 cm x 0.8 cm x 2.1 cm (w x ap x l). Volume: 0.8 cm3. Atrophied, echogenic thyroid tissue. Very similar to the prior study. No nodule or mass. No adenopath y. Isthmus: 0.2 cm. US/US thyroid [id number] IMPRESSION: Atrophy echogenic thyroid. No nodules.
== END 2022-09-21 13:21 | disposition home or self-care (01) ==
PROVIDERS: PCP Internal Medicine; Visit Provider Internal Medicine
DX: E03.9 Hypothyroidism, unspecified (principal); R05.3 Chronic cough; J45.909 Unspecified asthma, uncomplicated; G47.33 Obstructive sleep apnea (adult) (pediatric)
CPT/HCPCS: 76536; 99204

== ENCOUNTER → 2022-12-25 12:46 | Outpatient (BNVA) | payer MEDICARE, OTHER, MEDICAID, SELFPAY | PROVIDERS: PCP Internal Medicine; Visit Provider Anesthesiology Pain Medicine | DX: G89.29 Other chronic pain (principal); M47.816 Spondylosis without myelopathy or radiculopathy, lumbar region | CPT/HCPCS: 64493; 64494; 64495; J3490 ==

== ENCOUNTER → 2023-01-01 13:45 | Outpatient (BNVA) | payer MEDICARE, OTHER, MEDICAID, SELFPAY | PROVIDERS: PCP Internal Medicine; Visit Provider Internal Medicine Cardiovascular Disease | DX: R06.02 Shortness of breath (principal); I10 Essential (primary) hypertension | CPT/HCPCS: 99214 ==

== ENCOUNTER → 2023-01-08 08:35 | Outpatient (BNVA) | payer MEDICARE, OTHER, SELFPAY | PROVIDERS: PCP Internal Medicine; Visit Provider Anesthesiology Pain Medicine | DX: G89.29 Other chronic pain (principal); M51.36 Other intervertebral disc degeneration, lumbar region; M47.816 Spondylosis without myelopathy or radiculopathy, lumbar region | CPT/HCPCS: 99214 ==

== ENCOUNTER 2023-01-17 13:14 | Outpatient (CLI) | payer MEDICARE, OTHER, MEDICAID, SELFPAY ==
--- NOTE | 2023-01-17 14:00 | USCV_ITS ---
Lilo Vazquez Age: 77 Gender: F : 1945 Exam Date: 01/17/2023 13:40 Ordering Phys: Zenobia Peterson MD ([email or web address]) Technologist: Elier Huerta [place] [facility] [place]: Shortness of breath BP: 132 / 72 HR: 66 Rhythm: Sinus Technical Quality: Adequate MEASUREMENTS (Male / Female) Normal Values 2D ECHO LVOT Diameter 2.0 cm LV Ejection Fraction MOD 2C 72.8 % LV Ejection Fraction 2C AL 74.2 % LA Diameter 3.2 cm LA Width 2.9 cm LA Height 5.1 cm RA Width 4.3 cm RA Height 4.5 cm Aorta at Sinotubular Diameter 2.5 cm IVC Diameter 1.3 cm M-MODE Aortic Annulus Diameter 2.8 cm LA Ao Ratio MM 1.2 MV E Point Septal Separation 0.2 cm DOPPLER AV Peak Velocity 151.3 cm/s LVOT Peak Velocity 135.0 cm/s AV Area Cont Eq vti 2.9 cm squared AV Area Cont Eq pk 2.9 cm squared MV Peak Velocity 100.0 cm/s MV Area PHT 3.9 cm squared Mitral E to A Ratio 1.1 MV E' Velocity 51.0 cm/s Mitral E to MV E' Ratio 12.8 Mitral E to LV E' Lateral Ratio 14.0 Mitral E to LV E' Septal Ratio 11.9 TR Peak Velocity 341.0 cm/s TR Peak Gradient 46.5 mmHg TR Mean Velocity 276.9 cm/s TR Mean Gradient 34.5 mmHg TR Velocity Time Integral 103.6 cm Right Atrial Pressure 3.0 mmHg Pulmonary Artery Systolic Pressu 49.5 mmHg PV Peak Velocity 87.7 cm/s RV Acceleration Time 0.1 s RV Ejection Time 0.3 s RV AcT/ET 0.3 FINDINGS Left Ventricle Normal left ventricular size, systolic function and wall thickness, with no regional wall motion abnormalities. Left ventricular ejection fraction is estimated at 70 %. Normal diastolic function. Right Ventricle Normal right ventricular size and systolic function. Right Atrium Normal right atrial size. Left Atrium Normal left atrial size. Mitral Valve Structurally normal mitral valve. No mitral valve stenosis. Mild mitral valve regurgitation. Aortic Valve Structurally normal trileaflet aortic valve. No aortic valve stenosis. Trace aortic valve regurgitation. Tricuspid Valve Structurally normal tricuspid valve. No tricuspid valve stenosis. Trace tricuspid valve regurgitation. Pulmonic Valve Structurally normal pulmonic valve. No pulmonary valve stenosis. Trace pulmonary valve regurgitation. Pericardium No pericardial effusion. Aorta Normal size aortic root and proximal ascending aorta. IVC Normal IVC dimension with >50% respiratory change of the inferior vena cava. CONCLUSIONS 1. Normal left ventricular size, systolic function and wall thickness, with no regional wall motion abnormalities. Left ventricular ejection fraction is estimated at 70 %. Normal diastolic function. 2. Mild mitral valve regurgitation. 3. No significant change when compared to study dated 06/26/2016, Zenobia Peterson MD (Electronically Signed) Final Date: 20 January 2023 22:36 S
== END 2023-01-17 13:15 | disposition home or self-care (01) ==
PROVIDERS: PCP Internal Medicine; Visit Provider Internal Medicine Cardiovascular Disease
DX: I34.0 Nonrheumatic mitral (valve) insufficiency (principal); R06.02 Shortness of breath
CPT/HCPCS: 93306

== ENCOUNTER 2023-06-24 11:44 | Outpatient (CLI) | payer MEDICARE, OTHER, MEDICAID, SELFPAY ==
--- NOTE | 2023-06-24 12:10 | XRR_ITS ---
PROCEDURE INFORMATION: Exam: XR Chest Exam date and time: 06/24/2023 12:42 PM Age: 78 years old Clinical indication: Cough and shortness of breath; Patient HX: HX of thyroid cancer TECHNIQUE: Imaging protocol: Radiologic exam of the chest. Views: 2 views. COMPARISON: CT chest w con* [id number] 05/02/2022 1:13 PM FINDINGS: Age consistent degenerative changes are present in the thoracic spine primarily at the midthoracic level. Surgical clips noted in the upper abdomen. Lungs: Clear. Pleural spaces: No pleural effusion identified. Heart/Mediastinum: The heart is not enlarged. The mediastinum is not enlarged. Bones/joints: No acute osseous abnormality identified. XR/XR chest 2V* [id number] IMPRESSION: No acute cardiopulmonary abnormality identified..
== END 2023-06-24 11:45 | disposition home or self-care (01) ==
LOC: RAD 11:53
PROVIDERS: PCP Internal Medicine; Visit Provider Internal Medicine
DX: R05.9 Cough, unspecified (principal); R06.02 Shortness of breath; Z85.850 Personal history of malignant neoplasm of thyroid
CPT/HCPCS: 71046

== ENCOUNTER → 2023-07-09 10:40 | Outpatient (BNVA) | payer MEDICARE, OTHER, MEDICAID, SELFPAY | PROVIDERS: PCP Internal Medicine; Visit Provider Internal Medicine Cardiovascular Disease | DX: R06.02 Shortness of breath (principal); I10 Essential (primary) hypertension | CPT/HCPCS: 99214 ==

== ENCOUNTER 2023-09-09 13:13 | Outpatient (CLI) | payer MEDICARE, OTHER, MEDICAID, SELFPAY ==
--- NOTE | 2023-09-09 13:20 | MM_ITS ---
WS: [id number] BILATERAL 3D TOMOSYNTHESIS DIGITAL DIAGNOSTIC MAMMOGRAPHY WITH CAD CLINICAL INFORMATION: LT BR PAIN HISTORY: RIGHT breast pain COMPARISON: 2021 TECHNIQUE: Bilateral CC, MLO, and ML views. FINDINGS: Scattered fibroglandular densities bilaterally. Vascular calcification. Punctate and lucent centered calcifications. Stable clustered calcifications. Palpable markers RIGHT axillary tail. Ultrasound of this area is pending. Few normal-appearing lymph nodes in this area. Biopsy clip RIGHT breast with st able previously biopsied calcifications. Biopsy clip LEFT breast. LEFT breast is unremarkable. ULTRASOUND BREAST RIGHT TECHNIQUE: Ultrasound right breast focused area of concern. CLINICAL INFORMATION: RIGHT breast pain FINDINGS: Ultrasound RIGHT breast at the 10 o'clock position 7 cm from the nipple area of concern and 9 o'clock position 7 cm from the nipple. Normal-appearing lymph node at the 10 o'clock position with preserved fatty hilum and normal cortex. LEFT and measures 1.6 cm x 0.7 cm. No other suspicious abnormalities in the areas of concern. No other significant findings. IMPRESSION: MM/[place] [id number] BI-RADS: 2-Benign FOLLOW UP: 1 Year Follow-up Recommend return to annual screening mammography.
== END 2023-09-09 13:14 | disposition home or self-care (01) ==
LOC: RAD 13:16
PROVIDERS: PCP Internal Medicine; Visit Provider Internal Medicine
DX: N64.4 Mastodynia (principal)
CPT/HCPCS: 76642; 77062; G0279

== ENCOUNTER → 2023-10-04 08:35 | Outpatient (BNVA) | payer MEDICARE, OTHER, MEDICAID, SELFPAY | PROVIDERS: PCP Internal Medicine; Visit Provider Podiatrist Foot & Ankle Surgery | DX: E11.42 Type 2 diabetes mellitus with diabetic polyneuropathy (principal); L60.3 Nail dystrophy; Z79.4 Long term (current) use of insulin; Z79.84 Long term (current) use of oral hypoglycemic drugs | CPT/HCPCS: 11721; 99203 ==

== ENCOUNTER 2023-10-10 12:44 | Outpatient (CLI) | payer MEDICARE, OTHER, MEDICAID, SELFPAY ==
--- NOTE | 2023-10-10 12:48 | CT_ITS ---
WS: [id number] CT NECK WITH CONTRAST HISTORY: PAROTID SWELLING, history of thyroid cancer. TECHNIQUE: Contiguous 2 mm axial images are performed through the neck with intravenous contrast. Sag ittal and coronal reformats are also submitted. All CT scans at [facility] use at least one o f these dose optimization techniques: automated exposure control; mA and/or kV adjustment per patient size (includes targeted exams where dose is matched to clinical indication); or iterative reconstruc tion. CONTRAST: CONTRAST: Omnipaque 350; 100 mL IV. DLP: 188.37 mGy.cm COMPARISON: 07/23/2018 Nasopharynx, oropharynx, hypopharynx and larynx are unremarkable. No soft tissue masses or abnormal e nhancement. Torus tubarius and fossa of Rosenmuller and parapharyngeal fat are normal. There are small cervical chain lymph nodes but no adenopathy. Thyroid gland has been surgically removed. No recurrent mass at the thyroid bed. Parotid gland and welch bmandibular glands are symmetric bilaterally. There is no inflammation surrounding the parotid glands . Both parotid ducts are normal with no stones or obstruction. Mild cervical spondylosis. Visualized portions of the skull base demonstrate no abnormalities. Orbits and globes are within norm al limits. No soft tissue masses. Visualized paranasal sinuses and mastoid air cells are normal. Lung apices are clear. IMPRESSION: 1. Normal parotid glands. No evidence for acute inflammation or mass. 2. Normal parotid ducts. 3. Prior thyroidectomy. 4. No lymphadenopathy along the cervical chains.
[2023-10-10] MEDS: iohexol 350 mg/mL 500 mL Btl (per mL) IV (13:38)
== END 2023-10-10 12:45 | disposition home or self-care (01) ==
LOC: RAD 12:44
PROVIDERS: PCP Internal Medicine; Visit Provider Internal Medicine
DX: R22.1 Localized swelling, mass and lump, neck (principal); E89.0 Postprocedural hypothyroidism
CPT/HCPCS: 70491; Q9967

== ENCOUNTER → 2023-11-26 09:55 | Outpatient (BNVA) | payer MEDICARE, OTHER, MEDICAID, SELFPAY | PROVIDERS: PCP Internal Medicine; Visit Provider Otolaryngology | DX: Z85.850 Personal history of malignant neoplasm of thyroid (principal); R13.10 Dysphagia, unspecified; K11.7 Disturbances of salivary secretion; J34.2 Deviated nasal septum; R13.13 Dysphagia, pharyngeal phase | CPT/HCPCS: 31575; 99204; 99205 ==

== ENCOUNTER → 2024-01-20 11:34 | Outpatient (BNVA) | payer MEDICARE, OTHER, MEDICAID, SELFPAY | PROVIDERS: PCP Internal Medicine; Visit Provider Internal Medicine Cardiovascular Disease | DX: I83.819 Varicose veins of unspecified lower extremity with pain (principal); R42 Dizziness and giddiness; I10 Essential (primary) hypertension; E11.9 Type 2 diabetes mellitus without complications; R00.2 Palpitations; Z79.4 Long term (current) use of insulin | CPT/HCPCS: 99214 ==

== ENCOUNTER → 2024-01-28 10:05 | Outpatient (BNVA) | payer MEDICARE, OTHER, MEDICAID, SELFPAY | PROVIDERS: PCP Internal Medicine; Visit Provider Internal Medicine Cardiovascular Disease | DX: R42 Dizziness and giddiness (principal); R00.0 Tachycardia, unspecified; R00.1 Bradycardia, unspecified; I49.1 Atrial premature depolarization; I49.3 Ventricular premature depolarization | CPT/HCPCS: 93225 ==

== ENCOUNTER → 2024-02-12 13:37 | Outpatient (BNVA) | payer MEDICARE, OTHER, MEDICAID, SELFPAY | PROVIDERS: PCP Internal Medicine; Visit Provider Specialist | DX: M65.342 Trigger finger, left ring finger; M72.0 Palmar fascial fibromatosis [Dupuytren] | CPT/HCPCS: 73130; 99213 ==

== ENCOUNTER → 2024-03-16 13:57 | Outpatient (BNVA) | payer MEDICARE, OTHER, MEDICAID, SELFPAY | PROVIDERS: PCP Internal Medicine; Visit Provider Specialist | DX: M65.321 Trigger finger, right index finger (principal) | CPT/HCPCS: 73130; 99214 ==

== ENCOUNTER 2024-04-14 12:44 | Outpatient (CLI) | payer MEDICARE, OTHER, MEDICAID, SELFPAY ==
--- NOTE | 2024-04-14 13:00 | MRR_ITS ---
PROCEDURE INFORMATION: Exam: MR Right Upper Extremity Other Than Joint Without Contrast; Hand Exam date and time: 04/14/2024 1:12 PM Age: 79 years old Clinical indication: Prior surgery; Surgery date: 6+ months; Surgery type: Trigger finger 3rd digit; Patient HX: HX of trigger finger release on third digit in 2021 recently has been having pain shooting down the 2nd digit into the base of the thumb and sometimes as low as her wrist; Additional info: Right index finger TECHNIQUE: Imaging protocol: MR of the right upper extremity without contrast. Exam focused on the hand. COMPARISON: MR hand RT wo con* [id number] 10/25/2021 4:32 PM FINDINGS: Bones/joints: Postsurgical fibrosis/scarring is noted at the base of the right index finger consistent with patient history. Scattered degenerative change consistent with osteoarthritis. Suggestion of bare area erosion at the radial aspect of the 2nd metacarpal head. There is perhaps mild prominence of the right 2nd metacarpophalangeal joint synovium with mild surrounding edematous change best appreciated on the coronal FE3D fat sat sequences. Collateral ligaments of digits: Unremarkable. No evidence of tear. Flexor compartment tendons: There is perhaps mild increased fluid about the tendon sheath of the proximal flexor tendon at the base of the index finger. Extensor compartment tendons: Unremarkable. No evidence of tear. Soft tissues: Unremarkable. MR/MR hand RT wo con* [id number] IMPRESSION: 1. Perhaps minimal tenosynovitis of the proximal flexor tendon at the base of the index finger. 2. No discrete mass is noted at the index finger. 3. Nonspecific mild joint space inflammation/synovitis of the 2nd metacarpophalangeal joint. Suggest correlation with underlying rheumatoid arthritis. 4. Suggestion of possible bare area erosion at the radial aspect of the distal 2nd metacarpal head. Suggest correlation with underlying rheumatoid arthritis.
== END 2024-04-14 12:45 | disposition home or self-care (01) ==
LOC: RAD 12:46
PROVIDERS: PCP Internal Medicine; Visit Provider Specialist
DX: M65.321 Trigger finger, right index finger (principal); M65.841 Other synovitis and tenosynovitis, right hand
CPT/HCPCS: 73218

== ENCOUNTER → 2024-04-15 12:09 | Outpatient (BNVA) | payer MEDICARE, OTHER, MEDICAID, SELFPAY | PROVIDERS: PCP Internal Medicine; Visit Provider Specialist | DX: M06.4 Inflammatory polyarthropathy (principal) | CPT/HCPCS: 36415; 80053; 84550; 85025; 85651; 86140; 86200; 86225; 86235; 86431 ==

== ENCOUNTER 2024-04-28 11:39 | Outpatient (CLI) | payer MEDICARE, OTHER, MEDICAID, SELFPAY ==
--- NOTE | 2024-04-28 11:44 | CT_ITS ---
WS: [id number] CT ABDOMEN AND PELVIS WITH CONTRAST HISTORY: LLQ RLQ ABDOMINAL PAIN TECHNIQUE: Imaging performed of the abdomen and pelvis with IV contrast. Single phase imaging of the abdomen. Coronal and sagittal reformats are submitted. All CT scans at [facility] use at ted st one of these dose optimization techniques: automated exposure control; mA and/or kV adjustment per patient size (includes targeted exams where dose is matched to clinical indication); or iterative re construction. IV CONTRAST: Omnipaque 350; 100 mL IV. Oral contrast: Yes. DLP: 877.13 mGy.cm COMPARISON: 07/05/2020 Lower thorax: Lung bases are clear. Heart is normal size. No hiatal hernia. Liver/biliary system: Normal size liver with cirrhotic configuration. No mass. Gallbladder: Prior cholecystectomy. Pancreas: Normal size pancreas and pancreatic duct. No adjacent inflammation. Spleen: Mildly enlarged spleen at 13.3 cm in length. Adrenal glands: Normal. Right kidney: Normal. Left kidney: Normal. Aorta: Mild atherosclerosis with no aneurysm. Lymphadenopathy: Central upper abdomen lymph nodes. Lymph nodes measure up to 10 mm along the lesser curvature of the stomach and surrounding the celiac axis. Lymph nodes were present on prior studies a lso but slightly increased in size. May be related to patient's cirrhosis. Free fluid: None. GI tract: Normally distended stomach. No small bowel obstruction. Moderate diffuse constipation. Mild diverticular burden without acute diverticulitis. Abdominal wall: Ventral abdominal wall hernia measures 1.4 cm and contains fat only. Pelvis: Small caliber anteverted uterus. Normal urinary bladder. No free fluid or adnexal masses. Bones: Unremarkable. CT/CT abdomen pelvis w con* [id number] IMPRESSION: 1. Ventral abdominal wall hernia contains omental fat only. 2. Mildly cirrhotic liver. 3. Numerous lymph nodes are noted near the gastrohepatic ligament and the archie ac axis. These lymph nodes are present for several years with minimal increase in size. May be related to cirrhosis. 4. Mild splenomegaly. 5. Prior cholecystectomy. 6. No ascites.
[2024-04-28] MEDS: iohexol 350 mg/mL 500 mL Btl (per mL) PO (12:41)
[2024-04-28] MEDS: iohexol 350 mg/mL 500 mL Btl (per mL) IV (12:41)
== END 2024-04-28 11:40 | disposition home or self-care (01) ==
PROVIDERS: PCP Internal Medicine; Visit Provider Internal Medicine
DX: K74.60 Unspecified cirrhosis of liver (principal); K43.9 Ventral hernia without obstruction or gangrene; Z90.49 Acquired absence of other specified parts of digestive tract
CPT/HCPCS: 74177

== ENCOUNTER → 2024-05-04 13:00 | Outpatient (BNVA) | payer MEDICARE, OTHER, MEDICAID, SELFPAY | PROVIDERS: PCP Internal Medicine; Visit Provider Specialist | DX: M72.0 Palmar fascial fibromatosis [Dupuytren] (principal) | CPT/HCPCS: 99213 ==

== ENCOUNTER → 2024-07-01 15:25 | Outpatient (BNVA) | payer MEDICARE, OTHER, MEDICAID, SELFPAY | PROVIDERS: PCP Internal Medicine; Visit Provider Internal Medicine Cardiovascular Disease | DX: I10 Essential (primary) hypertension (principal); R00.2 Palpitations; E11.649 Type 2 diabetes mellitus with hypoglycemia without coma; Z79.4 Long term (current) use of insulin; I83.819 Varicose veins of unspecified lower extremity with pain; Z87.891 Personal history of nicotine dependence; R42 Dizziness and giddiness; R05.3 Chronic cough | CPT/HCPCS: 99214 ==

== ENCOUNTER → 2024-11-03 14:42 | Outpatient (BNVA) | payer MEDICARE, OTHER, MEDICAID, SELFPAY | PROVIDERS: PCP Internal Medicine; Visit Provider Podiatrist Foot & Ankle Surgery | DX: E11.42 Type 2 diabetes mellitus with diabetic polyneuropathy (principal); L60.3 Nail dystrophy; L84 Corns and callosities; L60.0 Ingrowing nail; Z79.4 Long term (current) use of insulin | CPT/HCPCS: 11055; 11721; 99213 ==

== ENCOUNTER 2024-11-27 14:09 | Outpatient (CLI) | payer MEDICARE, OTHER, MEDICAID, SELFPAY ==
--- NOTE | 2024-11-27 14:15 | XR_ITS ---
WS: [email or web address] Chest 2 views, 11/27/2024 Clinical Data: CERVICALGIA Comparison: None. Findings: No nodules, masses or effusions are seen. The heart is normal. The pulmonary vascularity is not increased. No pneumonia or pneumothorax is seen. The aortic arch and descending thoracic aorta show mild tortuosity. There are cholecystectomy clips in the right upper quadrant. XR/XR chest 2V* [id number] Impression: Atherosclerosis.
== END 2024-11-27 14:10 | disposition home or self-care (01) ==
LOC: RAD 14:12
PROVIDERS: PCP Internal Medicine; Visit Provider Specialist
DX: M54.2 Cervicalgia (principal); I70.90 Unspecified atherosclerosis; Z90.49 Acquired absence of other specified parts of digestive tract
CPT/HCPCS: 71046

== ENCOUNTER 2024-12-18 08:25 | Outpatient (CLI) | payer MEDICARE, OTHER, MEDICAID, SELFPAY ==
--- NOTE | 2024-12-18 08:31 | CT_ITS ---
WS: [email or web address] CT NECK TECHNIQUE: Contrast-enhanced CT of the neck with coronal and sagittal reformatted images. CLINICAL INFORMATION: CERVICALGIA COMPARISON: 2023 DLP: 186.[address] scans at [facility] use at least one of these dose optimization techniques: automated exposure control; mA and/or kV adjustment per patient size (includes targeted exams where dose is matched to clinical indication); or iterative reconstruction. FINDINGS: Prior thyroidectomy. Normal thyroid bed. No cervical lymphadenopathy. Paranasal sinuses and mastoid air cells are well aerated. Parotid glands are normal. Normal submandibular glands. Normal parapharyngeal fat. Normal posterior nasopharynx. No evidence of supraglottic or glottic mass. Normal subglottic airway. Partially visualized normal aortic arch. Lung apices are well aerated. Mild to moderate spondylitic changes cervical spine. CT/CT neck w con* [id number] IMPRESSION: 1. Prior thyroidectomy. Normal thyroid bed. 2. Normal salivary glands. 3. Mild to moderate spondylitic changes cervical spine. 4. No other acute findings.
--- NOTE | 2024-12-18 08:31 | XR_ITS ---
WS: [email or web address] Chest 2 views, 12/18/2024 Clinical Data: CERVICALGIA Comparison: Two-view chest, 11/27/2024 Findings: No nodules, masses or effusions are seen. The heart is normal. The pulmonary vascularity is not increased. No pneumonia or pneumothorax is seen. The aortic arch and descending thoracic aorta show minimal tortuosity. XR/XR chest 2V* [id number] Impression: Atherosclerosis.
[2024-12-18 09:07] LABS: Blood Urea Nitrogen 11 mg/dL (8-23)
[2024-12-18] MEDS: iohexol 350 mg/mL 500 mL Btl (per mL) IV (09:08)
== END 2024-12-18 08:26 | disposition home or self-care (01) ==
LOC: RAD 08:26
PROVIDERS: PCP Internal Medicine; Visit Provider Specialist
DX: M47.892 Other spondylosis, cervical region (principal); Z98.890 Other specified postprocedural states; I70.90 Unspecified atherosclerosis
CPT/HCPCS: 70491; 71046; 82565; 84520

== ENCOUNTER → 2025-01-05 14:58 | Outpatient (BNVA) | payer MEDICARE, OTHER, MEDICAID, SELFPAY | PROVIDERS: Visit Provider Podiatrist Foot & Ankle Surgery | DX: E11.42 Type 2 diabetes mellitus with diabetic polyneuropathy (principal); L60.3 Nail dystrophy; L60.0 Ingrowing nail; L84 Corns and callosities; B35.3 Tinea pedis; Z79.4 Long term (current) use of insulin | CPT/HCPCS: 11721; 99213 ==

== ENCOUNTER 2025-03-04 12:20 | Outpatient (CLI) | payer MEDICARE, OTHER, MEDICAID, SELFPAY ==
--- NOTE | 2025-03-04 12:27 | XR_ITS ---
WS: [email or web address] XR ribs LT 2V* [id number] REASON FOR EXAM: LEFT SIDED RIB PAIN, UNSPECIFIED FALL FINDINGS: Minimally displaced presumed acute/subacute left anterolateral rib fractures 5 through 7. No pneumothorax or pleural effusion. No subcutaneous emphysema. XR/XR ribs LT 2V* [id number] IMPRESSION: Left rib fractures as above.
--- NOTE | 2025-03-04 12:33 | XR_ITS ---
WS: [email or web address] XR wrist RT min 3V* [id number] REASON FOR EXAM: PAIN IN RIGHT WRIST FINDINGS: Moderate decreased bone density. No fracture or focal bone lesion. No bone erosion or periosteal reaction. Moderately severe osteoarthritis in the carpometacarpal joint of the thumb with erosion of the trapezium. Carpal bones are otherwise intact. Intercarpal joints intact and well preserved. Normal carpal bone alignment. XR/XR wrist RT min 3V* [id number] IMPRESSION: No significant abnormality in the wrist. Moderately severe osteoarthritis in th e carpometacarpal joint of the thumb.
--- NOTE | 2025-03-04 12:33 | XR_ITS ---
WS: [email or web address] XR knee RT 3V* [id number] REASON FOR EXAM: PAIN IN RIGHT KNEE FINDINGS: Trace joint effusion. No fracture or focal bone lesion. Moderate narrowing of the medial knee joint space with moderate subchondral sclerosis and osteophytosis. Lateral knee joint space is intact and well preserved with mild subchondral sclerosis and mild osteophytosis. Narrowing of the patellofemoral joint space with moderate subchondral sclerosis and osteophytosis. Moderate opposing osteophytes of the medial and lateral femoral condyles. XR/XR knee RT 3V* [id number] IMPRESSION: Moderate osteoarthritis as above.
== END 2025-03-04 12:21 | disposition home or self-care (01) ==
PROVIDERS: PCP Internal Medicine; Visit Provider Nurse Practitioner Family
DX: M18.11 Unilateral primary osteoarthritis of first carpometacarpal joint, right hand (principal); M17.11 Unilateral primary osteoarthritis, right knee; S22.42XA Multiple fractures of ribs, left side, initial encounter for closed fracture; W19.XXXA Unspecified fall, initial encounter
CPT/HCPCS: 71100; 73110; 73562

== ENCOUNTER → 2025-03-11 13:56 | Outpatient (BNVA) | payer MEDICARE, OTHER, MEDICAID, SELFPAY | PROVIDERS: PCP Internal Medicine; Visit Provider Podiatrist Foot & Ankle Surgery | DX: E11.42 Type 2 diabetes mellitus with diabetic polyneuropathy (principal); L60.3 Nail dystrophy; L60.0 Ingrowing nail; L84 Corns and callosities; B35.3 Tinea pedis; Z79.4 Long term (current) use of insulin | CPT/HCPCS: 11721 ==

== ENCOUNTER 2025-03-22 10:21 | Outpatient (CLI) | payer MEDICARE, OTHER, MEDICAID, SELFPAY ==
--- NOTE | 2025-03-22 10:29 | CT_ITS ---
WS: [email or web address] CT HEAD TECHNIQUE: Noncontrast CT of the head obtained from the skullbase to the vertex. CLINICAL INFORMATION: MENTAL STATUS CHANGE COMPARISON: None. DLP: 1032.[address] scans at [facility] use at least one of these dose optimization techniques: automated exposure control; mA and/or kV adjustment per patient size (includes targeted exams where dose is matched to clinical indication); or iterative reconstruction. FINDINGS: No evidence of intracranial hemorrhage or mass effect. Ventricular system and basal cisterns are patent. Mild small vessel changes with mild parenchymal volume loss. No extra-axial fluid collections. No evidence of mass or mass effect. Normal chou-white differentiation. Vascular calcification Paranasal sinuses and mastoid air cells are well aerated. .Normal visualized soft tissues. CT/CT head wo con* [id number] IMPRESSION: 1. No evidence of intracranial hemorrhage or mass effect. 2. Mild small vessel changes with mild parenchymal volume loss. 3. No acute intracranial findings.
== END 2025-03-22 10:22 | disposition home or self-care (01) ==
PROVIDERS: PCP Internal Medicine; Visit Provider Internal Medicine
DX: R41.82 Altered mental status, unspecified (principal)
CPT/HCPCS: 70450

== ENCOUNTER 2025-03-30 13:10 | Outpatient (CLI) | payer MEDICARE, OTHER, MEDICAID, SELFPAY ==
--- NOTE | 2025-03-30 13:21 | XRR_ITS ---
PROCEDURE INFORMATION: Exam: XR Left Ribs Exam date and time: 03/30/2025 1:37 PM Age: 79 years old Clinical indication: Injury or trauma; Rib area, left side; Blunt trauma; Injury date: 03/03/25; Injury details: F/u lt 5-7th rib fx's PT fell, PT having stabbing pain in lt lower rib area since fall; HX of thyroid cancer; Additional info: Left sided rib pain/repeat xray from 03-03-25 TECHNIQUE: Imaging protocol: Radiologic exam of the left ribs. Views: 2 views. COMPARISON: CR XR ribs LT 2V* [id number] 03/04/2025 12:39 PM FINDINGS: Bones/joints: Redemonstration of subtle subacute fractures of the 5th through 7th ribs. No new fractures. Soft tissues: Normal. XR/XR ribs LT 2V* [id number] IMPRESSION: No acute findings.
== END 2025-03-30 13:11 | disposition home or self-care (01) ==
LOC: RAD 13:14
PROVIDERS: PCP Internal Medicine; Visit Provider Nurse Practitioner Family
DX: S22.42XD Multiple fractures of ribs, left side, subsequent encounter for fracture with routine healing (principal); W19.XXXD Unspecified fall, subsequent encounter
CPT/HCPCS: 71100

== ENCOUNTER → 2025-05-20 14:37 | Outpatient (BNVA) | payer MEDICARE, OTHER, MEDICAID, SELFPAY | PROVIDERS: PCP Internal Medicine; Visit Provider Podiatrist Foot & Ankle Surgery | DX: E11.8 Type 2 diabetes mellitus with unspecified complications (principal); L60.3 Nail dystrophy; L60.0 Ingrowing nail; E11.42 Type 2 diabetes mellitus with diabetic polyneuropathy; L84 Corns and callosities; B35.3 Tinea pedis; Z79.4 Long term (current) use of insulin; Z79.85 Long-term (current) use of injectable non-insulin antidiabetic drugs | CPT/HCPCS: 11721 ==

== ENCOUNTER → 2025-06-30 14:38 | Outpatient (BNVA) | payer MEDICARE, OTHER, MEDICAID, SELFPAY | PROVIDERS: PCP Internal Medicine; Visit Provider Internal Medicine Cardiovascular Disease | DX: K21.9 Gastro-esophageal reflux disease without esophagitis (principal); R42 Dizziness and giddiness; Z91.81 History of falling | CPT/HCPCS: 99214 ==